=== PATIENT | male | born 1955 | race African-American/Black ===

== ENCOUNTER 2017-08-12 06:43 | Emergency (ER) | payer OTHER ==
--- NOTE | 2017-08-12 08:01 | RAD ---
INDICATION: Right knee pain. TECHNIQUE: 4 views of the right knee were obtained. FINDINGS: The bones are in normal alignment. No joint effusion or fracture is seen. There is mild osteoarthritic change in the medial patellofemoral compartments. IMPRESSION: NO EVIDENCE FOR FRACTURE.
[2017-08-12 09:25] VITALS: BP 131/72
--- NOTE | 2017-08-14 10:51 | ED ---
Paras Wu Angela, scribed for Sandro Castellano MD on 08/12/17 at 0718 . Lower Extremity - HPI Summary HPI Summary: This pt is a 62 y/o male presenting to [facility] c/o right knee pain s/p fall 1.5 weeks ago. Pt reports he fell on his right knee. He states it was swollen. He currently rates his pain 10/10 in severity. Pt notes he is taking hydromorphone without relief, which he states he takes for his cancer. Pt denies any other recent fall or injury to knee. - History of Current Complaint Chief Complaint: EDExtremityLower Stated Complaint: RIGHT LEG PAIN Time Seen by Provider: 08/12/17 07:08 Hx Obtained From: Patient Mechanism Of Injury: Fall From A Standing Position Onset of Pain: Immediate Onset/Duration: Days Severity Currently: Severe Pain Intensity: 10 Pain Scale Used: 0-10 Numeric Timing: Lasting Days Location: Is Discrete @ - right knee Associated Signs And Symptoms: Positive: Swelling, Knee Pain - right Aggravating Factor(s): Nothing Alleviating Factor(s): Nothing - Allergies/Home Medications Allergies/Adverse Reactions: Allergies Allergy/AdvReac Type Severity Reaction Status Date / Time banana Allergy Intermediate Vomiting Verified 07/22/17 15:12 Home Medications: Home Medications Aspirin EC TAB* [Ecotrin EC Low Dose 81 MG*] 81 mg PO DAILY 08/12/17 [History Confirmed 08/12/17] Bicalutamide (NF) [Casodex (NF)] 50 mg PO DAILY 08/12/17 [History Confirmed 02/19] PMH/Surg Hx/FS Hx/Imm Hx Endocrine/Hematology History: Denies: Hx Diabetes, Hx Systemic Lupus Erythematosus Cardiovascular History: Reports: Hx Hypertension - well controlled with medicatons Denies: Hx Congestive Heart Failure, Hx Pacemaker/ICD GI History: Reports: Hx Gall Bladder Disease Denies: Other GI Disorders History: Reports: Other Problems/Disorders - uti Denies: Hx Dialysis, Hx Renal Disease Musculoskeletal History: Reports: Hx Back Problems, Other Musculoskeletal History - bone pain right knee Denies: Hx Rheumatoid Arthritis Sensory History: Reports: Hx Contacts or Glasses - Reading Glasses Denies: Hx Hearing Aid Opthamlomology History: Reports: Hx Contacts or Glasses - Reading Glasses Neurological History: Reports: Other Neuro Impairments/Disorders - bells palsy Psychiatric History: Reports: Hx Anxiety, Hx Depression Denies: Hx Panic Disorder - Cancer History Cancer Type, Location and Year: PROSTATE Hx Chemotherapy: Yes - "DAILY PILLS AND SHOT EVERY 3 MONTHS" - Surgical History Surgery Procedure, Year, and Place: gallbladder removed. prostate removed. hernia repair. Lumbar spine sx Hx Anesthesia Reactions: No Infectious Disease History: No Infectious Disease History: Reports: Hx Hepatitis - Hep C, Hx Tuberculosis - took pills he states Denies: Traveled Outside the [place] in Last 30 Days - Family History Known Family History: Negative: Cardiac Disease, Hypertension, Diabetes - Social History Alcohol Use: Rare Alcohol Amount: Patient has stated x2 that he is not drinking alcohol. Substance Use Type: Reports: None Substance Use Comment - Amount & Last Used: HX ETOH ABUSE Smoking Status (MU): Current Every Day Smoker Type: Cigarettes Amount Used/How Often: 6 cigarettes/day Length of Time of Smoking/Using Tobacco: 40YRS Have You Smoked in the Last Year: Yes Review of Systems Negative: Fever, Chills ENT: Negative Cardiovascular: Negative Respiratory: Negative Gastrointestinal: Negative Musculoskeletal: Other - right knee pain Neurological: Negative All Other Systems Reviewed And Are Negative: Yes Physical Exam - Summary Physical Exam Summary: VITAL SIGNS: Reviewed. GENERAL: Patient is a well-developed and nourished male who is lying comfortable in the stretcher. Patient is not in any acute respiratory distress. HEAD AND FACE: No signs of trauma. No ecchymosis, hematomas or skull depressions. No sinus tenderness. EYES: PERRLA, EOMI x 2, No injected conjunctiva, no nystagmus. EARS: Hearing grossly intact. Ear canals and tympanic membranes are within normal limits. MOUTH: Oropharynx within normal limits. NECK: Supple, trachea is midline, no adenopathy, no JVD, no carotid bruit, no c- spine tenderness, neck with full ROM. CHEST: Symmetric, no tenderness at palpation LUNGS: Clear to auscultation bilaterally. No wheezing or crackles. CVS: Regular rate and rhythm, S1 and S2 present, no murmurs or gallops appreciated. ABDOMEN: Soft, non-tender. No signs of distention. No rebound no guarding, and no masses palpated. Bowel sounds are normal. EXTREMITIES: FROM in all major joints, no edema, no cyanosis or clubbing. RLE: no deformity, no ecchymosis, no swelling, no erythema. Full ROM of right knee. Good pulses. NEURO: Alert and oriented x 3. No acute neurological deficits. Speech is normal and follows commands. SKIN: Dry and warm Triage Information Reviewed: Yes Vital Signs On Initial Exam: Initial Vitals Temp Pulse Resp BP Pulse Ox 98.6 F 75 16 141/81 99 08/12/17 06:43 08/12/17 06:43 08/12/17 06:43 08/12/17 06:43 08/12/17 06:43 Vital Signs Reviewed: Yes Diagnostics - Vital Signs Vital Signs Temp Pulse Resp BP Pulse Ox 08/12/17 06:43 98.6 F 75 16 141/81 99 - Laboratory Lab Statement: Any lab studies that have been ordered have been reviewed, and results considered in the medical decision making process. - Radiology Right knee XR Xray Interpretation: No Acute Changes - IMPRESSION: No evidence for fracture. Dr. Castellano has reviewed this radiology report. Radiology Interpretation Completed By: Radiologist Lower Extremity Course/Dx - Course Assessment/Plan: This pt is a 62 y/o male presenting to [facility] c/o right knee pain s/p fall 1.5 weeks ago. Pt reports he fell on his right knee. He states it was swollen. He currently rates his pain 10/10 in severity. Pt notes he is taking hydromorphone without relief, which he states he takes for his cancer. Pt denies any other recent fall or injury to knee. On exam, pt has full range of motion of right knee with good pulses. Right knee XR shows no fracture or dislocation. Therefore he will be discharged to home with follow up from his PCP. Pt will be given a prescription for Naproxen. He was also given crutches to help him ambulate at home. I discussed all the findings and test results with the patient. All questions were answered to patient satisfaction. There were no further complaints or concerns. He is instructed to return to the ED for any worsening or new symptoms. Pt is hemodynamically stable, alert and oriented x3. - Diagnoses Provider Diagnoses: Right knee pain Discharge - Sign-Out/Discharge Documenting (check all that apply): Discharge - discharge to home - Discharge Plan Condition: Stable Disposition: HOME Prescriptions: Naproxen [Naprosyn] 500 mg PO BID #20 tablet Patient Education Materials: Knee Pain (ED) Referrals: Guanaco Kellogg MD [Primary Care Provider] - 3 Days Additional Instructions: Please follow up with your primary care provider. RETURN TO THE ED FOR ANY NEW OR WORSENING SYMPTOMS. The documentation as recorded by the Paras antoine Angela accurately reflects the service I personally performed and the decisions made by , Sandro Castellano MD.
== END 2017-08-12 09:23 | disposition home or self-care (01) ==
LOC: ED 06:43
DX: M25.561 Pain in right knee (principal); I10 Essential (primary) hypertension; C61 Malignant neoplasm of prostate; W19.XXXA Unspecified fall, initial encounter; Y92.9 Unspecified place or not applicable
CPT/HCPCS: 99282

== ENCOUNTER 2018-01-29 11:30 | Emergency (ER) | payer OTHER ==
--- NOTE | 2018-01-29 12:02 | ED ---
Complex/Multi-Sys Presentation - HPI Summary HPI Summary: A 62 y/o M presents to ED with c/o n/v onset last night. Pt vomited last night and this AM. Associated sx: decreased oral intake. He also missed his recent appts and has run out of his prescriptions. He has not contacted his care providers regarding this issue. PCP is Dr. Kellogg. Dr and he also sees Dr. Alcocer, oncology. PMHx: prostate CA. - History Of Current Complaint Chief Complaint: EDNauseaVomitDiarrh Time Seen by Provider: 01/29/18 11:34 Hx Obtained From: Patient Onset/Duration: Lasting Hours - last night, Still Present Severity Currently: Moderate Severity Initially: Moderate Associated Signs And Symptoms: Positive: Nausea, Decreased Oral Intake - Allergies/Home Medications Allergies/Adverse Reactions: Allergies Allergy/AdvReac Type Severity Reaction Status Date / Time banana Allergy Intermediate Vomiting Verified 11/27/17 14:54 PMH/Surg Hx/FS Hx/Imm Hx Previously Healthy: No Endocrine/Hematology History: Denies: Hx Diabetes, Hx Systemic Lupus Erythematosus Cardiovascular History: Reports: Hx Hypertension - well controlled with medicatons Denies: Hx Congestive Heart Failure, Hx Pacemaker/ICD GI History: Reports: Hx Gall Bladder Disease Denies: Other GI Disorders History: Reports: Other Problems/Disorders - uti Denies: Hx Dialysis, Hx Renal Disease Musculoskeletal History: Reports: Hx Back Problems, Other Musculoskeletal History - bone pain right knee Denies: Hx Rheumatoid Arthritis Sensory History: Reports: Hx Contacts or Glasses - Reading Glasses Denies: Hx Hearing Aid Opthamlomology History: Reports: Hx Contacts or Glasses - Reading Glasses Neurological History: Reports: Other Neuro Impairments/Disorders - bells palsy Psychiatric History: Reports: Hx Anxiety, Hx Depression Denies: Hx Panic Disorder - Cancer History Cancer Type, Location and Year: PROSTATE Hx Chemotherapy: Yes - "DAILY PILLS AND SHOT EVERY 3 MONTHS" - Surgical History Surgery Procedure, Year, and Place: gallbladder removed. prostate removed. hernia repair. Lumbar spine sx Hx Anesthesia Reactions: No Infectious Disease History: No Infectious Disease History: Reports: Hx Hepatitis - Hep C, Hx Tuberculosis - took pills he states Denies: Traveled Outside the [place] in Last 30 Days - Family History Known Family History: Negative: Cardiac Disease, Hypertension, Diabetes - Social History Occupation: Unemployed Lives: With Family Alcohol Use: Weekly Alcohol Amount: 7 drinks per week Substance Use Type: Reports: None Substance Use Comment - Amount & Last Used: HX ETOH ABUSE Smoking Status (MU): Current Every Day Smoker Type: Cigarettes Amount Used/How Often: 1/4 PPD Length of Time of Smoking/Using Tobacco: 40YRS Have You Smoked in the Last Year: Yes Review of Systems Positive: Other - decreased oral intake Positive: Vomiting, Nausea All Other Systems Reviewed And Are Negative: Yes Physical Exam - Summary Physical Exam Summary: Appearance: The patient is well-nourished in no acute distress and in no acute pain. Skin: The skin is warm and dry and skin color reflects adequate perfusion. HEENT: The head is normocephalic and atraumatic. The pupils are equal and reactive. The conjunctivae are clear and without drainage. Nares are patent and without drainage. Mouth reveals moist mucous membranes and the throat is without erythema and exudate. The external ears are intact. The ear canals are patent and without drainage. The tympanic membranes are intact. Neck: the neck is supple with full range of motion and non-tender. There are no carotid bruits. There is no neck vein distension. Respiratory: Chest is non-tender. Lungs are clear to auscultation and breath sounds are symmetrical and equal. Cardiovascular: Heart is regular rate and rhythm. There is no murmur or rub auscultated. There is no peripheral edema and pulses are symmetrical and equal. Abdomen: The abdomen is soft and non-tender. There are normal bowel sounds heard in all four quadrants and there is no organomegaly palpated. Musculoskeletal: There is no back tenderness noted. Extremities are non-tender with full range of motion. There is good capillary refill. There is no peripheral edema or calf tenderness elicited. Neurological: Patient is alert and oriented to person, place and time. The patient has symmetrical motor strength in all four extremities. Cranial nerves are grossly intact. Deep tendon reflexes are symmetrical and equal in all four extremities. Psychiatric: The patient has an appropriate affect and does not exhibit any anxiety or depression. Triage Information Reviewed: Yes Vital Signs On Initial Exam: Initial Vitals Temp Pulse Resp BP Pulse Ox 97.2 F 73 18 127/75 97 01/29/18 11:37 01/29/18 11:37 01/29/18 11:37 01/29/18 11:37 01/29/18 11:37 Vital Signs Reviewed: Yes Diagnostics - Vital Signs Vital Signs Temp Pulse Resp BP Pulse Ox 01/29/18 11:37 97.2 F 73 18 127/75 97 - Laboratory Result Diagrams: 01/29/18 13:52 01/29/18 13:52 Lab Statement: Any lab studies that have been ordered have been reviewed, and results considered in the medical decision making process. Re-Evaluation - Re-Evaluation 1 Re-Evaluation Time: 15:44 Complex Multi-Symp Course/Dx Course Of Treatment: Mr. Van presented with a confusing story. Ostensibly he is here because he is nauseated and vomited last night. He is also concerned that he has run out of his mediciness. It is unclear exactly why this is so and he can't give a good reason. According to the [facility], he is due to run out of his hydromorphone tomorrow and his fentanyl on Friday. He missed an appointment last week so he says that the pain clinic will not refill them. I spoke with the Shilpa Katz of the pain clinic and she says that they are glad to call in refills now if he schedules another appointment. He says he can't do that because his phone isn't working. I recommended that he borrow a phone or call from the ED. His COWS is 0 at this time and he is wearing two fentanyl patches. 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 - Diagnoses Provider Diagnoses: Nausea Discharge - Sign-Out/Discharge Documenting (check all that apply): Patient Departure - DC - Discharge Plan Condition: Stable Disposition: HOME Patient Education Materials: Acute Nausea and Vomiting (ED) Referrals: Guanaco Kellogg MD [Primary Care Provider] - 2 Days Additional Instructions: Please return to the ED if you experience new or worsening symptoms. Follow up with your primary care provider in 2-3 days. CONTACT YOUR PHYSICIAN'S OFFICE FOR REFILLS ON YOUR PRESCRIPTIONS. - Billing Disposition and Condition Condition: STABLE Disposition: Home - Attestation Statements Document Initiated by Scribe: Yes Documenting Scribe: [facility] Provider For Whom Scribe is Documenting (Include Credential): Dr. Luke Weston MD Scribe Attestation: Jairo Wu, scribed for Dr. Luke Weston MD on 01/30/18 at 0958. Scribe Documentation Reviewed: Yes Provider Attestation: The documentation as recorded by the filomenaibe, Jairo Marvin accurately reflects the service I personally performed and the decisions made by me, Dr. Luke Weston MD
[2018-01-29] MEDS ORDERED: Ondansetron ODT TAB* 4 MG PO ONE (12:31)
[2018-01-29 14:14] LABS: Hematocrit 31 % (42-52); Hemoglobin 10.2 g/dl (14.0-18.0); Mean Corpuscular HGB Conc 33 g/dl (31-36); Mean Corpuscular Hemoglobin 30 pg (27-31); Mean Corpuscular Volume 91 fL (80-94); Red Cell Distribution Width 28 % (10.5-15); White Blood Count 4.1 10^3/ul (3.5-10.8)
[2018-01-29 14:17] LABS: EGFR Non-African American 103.3 (>60)
[2018-01-29 15:01] LABS: ABS Basophils 0 10^3/ul (0-0.2); ABS Eosinophils 0 10^3/ul (0-0.6); ABS Lymphocytes 0.9 10^3/ul (1.0-4.8); ABS Monocytes 0.4 10^3/ul (0-0.8); ABS Neutrophils 2.8 10^3/ul (1.5-7.7); ABS Nucleated RBC 0.1 10^3/ul; Eosinophil % 0.1 % (0-6); Lymphocyte % 21.4 % (25-47); Mean Platelet Volume 8.9 um3 (7.4-10.4); Nucleated Red Blood Cells % 2.5; Platelet Count 90 10^3/ul (150-450)
[2018-01-29] MEDS ORDERED: NS 0.9% 1000 ML* 1,000 ML IV ONE (15:45)
[2018-01-29] MEDS ORDERED: Ondansetron INJ* 2 MG/ML VIAL IV ONE (15:45)
[2018-01-29] MEDS ORDERED: HYDROmorphone TAB* 4 MG PO ONE (17:49)
[2018-01-29 18:58] VITALS: BP 129/69
== END 2018-01-29 18:59 | disposition home or self-care (01) ==
LOC: ED 11:30
DX: R11.2 Nausea with vomiting, unspecified (principal); I10 Essential (primary) hypertension; F17.210 Nicotine dependence, cigarettes, uncomplicated; Z85.46 Personal history of malignant neoplasm of prostate; Z79.899 Other long term (current) drug therapy
CPT/HCPCS: 36415; 80053; 85025; 85060; 86140; 96361; 96374; 99283; A9270-GY; J2405

== ENCOUNTER 2018-03-27 20:27 | Inpatient (IN) | payer OTHER ==
[2018-03-27] MEDS ORDERED: HYDROmorphone INJ* 2 MG/ML CARPUJECT SYRINGE IV SLOW PU ONE (20:53)
[2018-03-27] MEDS ORDERED: Ondansetron INJ* 2 MG/ML VIAL IV ONE (20:53)
[2018-03-27] MEDS ORDERED: Thiamine IV* 100 MG/ML 2 ML VIAL IV ONE (20:53)
--- NOTE | 2018-03-27 21:44 | ED ---
Complex/Multi-Sys Presentation - HPI Summary HPI Summary: Pt is a 62 y/o male brought in by EMS who presents to the ED c/o abdominal and coccyx pain. He states 5 days ago he fell backwards and hit his tailbone. Since then, he c/o bloody urine, abdominal pain, low back pain, and N/V. Pt also states that he had tremors, but doesnt have them now. He denies any CP or SOB. Pt currently has prostate CA. Pt hasnt had any alcohol in 3 days because he hasnt been able to move due to the pain but is a chronic alcoholic. He hasnt had a BM in 5 days. Pt has taken hydromorphone for the pain, but it has not helped. Pt states that his abdomen is always distended, but his eyes are not usually jaundiced. - History Of Current Complaint Chief Complaint: EDGeneral Time Seen by Provider: 03/27/18 20:35 Hx Obtained From: Patient, EMS Onset/Duration: Gradual Onset, Lasting Days - 5, Still Present Timing: Constant Location: Pain At: - Abdomen, back Aggravating Factor(s): Falling backwards Associated Signs And Symptoms: Positive: Nausea, Vomiting, Abdominal Pain, Back Pain. Negative: SOB, Chest Pain - Allergies/Home Medications Allergies/Adverse Reactions: Allergies Allergy/AdvReac Type Severity Reaction Status Date / Time banana Allergy Intermediate Vomiting Verified 02/13/18 14:24 PMH/Surg Hx/FS Hx/Imm Hx Endocrine/Hematology History: Denies: Hx Diabetes, Hx Systemic Lupus Erythematosus Cardiovascular History: Reports: Hx Hypertension - well controlled with medicatons Denies: Hx Congestive Heart Failure, Hx Pacemaker/ICD GI History: Reports: Hx Gall Bladder Disease Denies: Other GI Disorders History: Reports: Other Problems/Disorders - uti Denies: Hx Dialysis, Hx Renal Disease Musculoskeletal History: Reports: Hx Back Problems, Other Musculoskeletal History - bone pain right knee Denies: Hx Rheumatoid Arthritis Sensory History: Reports: Hx Contacts or Glasses - Reading Glasses Denies: Hx Hearing Aid Opthamlomology History: Reports: Hx Contacts or Glasses - Reading Glasses Neurological History: Reports: Other Neuro Impairments/Disorders - bells palsy Psychiatric History: Reports: Hx Anxiety, Hx Depression Denies: Hx Panic Disorder - Cancer History Cancer Type, Location and Year: PROSTATE Hx Chemotherapy: Yes - "DAILY PILLS AND SHOT EVERY 3 MONTHS" - Surgical History Surgery Procedure, Year, and Place: gallbladder removed. prostate removed. hernia repair. Lumbar spine sx Hx Anesthesia Reactions: No Infectious Disease History: No Infectious Disease History: Reports: Hx Hepatitis - Hep C, Hx Tuberculosis - took pills he states Denies: Traveled Outside the [place] in Last 30 Days - Family History Known Family History: Negative: Cardiac Disease, Hypertension, Diabetes - Social History Alcohol Use: Weekly Alcohol Amount: 7 drinks per week Hx Substance Use: No Substance Use Type: Reports: None Substance Use Comment - Amount & Last Used: HX ETOH ABUSE Hx Tobacco Use: Yes Smoking Status (MU): Current Every Day Smoker Type: Cigarettes Amount Used/How Often: 5-6 cigarettes/day Length of Time of Smoking/Using Tobacco: 40YRS Have You Smoked in the Last Year: Yes Review of Systems Negative: Chest Pain Negative: Shortness Of Breath Positive: Abdominal Pain, Vomiting, Nausea, Other - distention Positive: hematuria Positive: Myalgia - low back pain Neurological: Other - Tremors All Other Systems Reviewed And Are Negative: Yes Physical Exam - Summary Physical Exam Summary: Appearance: chronically-ill appearing, no pain distress Skin: warm, dry, chronic dermatitis on bilateral LE Head/face: allison facies Eyes: EOMI, SHIRA, icteric, no nystagmus ENT: mucous membranes dry and erythematous Neck: supple, non-tender Respiratory: moderate expiratory wheezes, breath sounds present Cardiovascular: RRR, pulses symmetrical Abdomen: distended, mild diffuse tenderness Bowel Sounds: present Musculoskeletal: normal, strength/ROM intact Neuro: sensory motor intact, A&Ox3, speech mildly slurred Triage Information Reviewed: Yes Vital Signs On Initial Exam: Initial Vitals Pulse Pulse Ox 75 95 03/27/18 20:32 03/27/18 20:32 Vital Signs Reviewed: Yes Procedures - Procedure Summary Procedure Summary: Paracentesis: Patient was consented and a timeout was performed. 2 cc 1% lidocaine given for anesthesia, 2 1 L containers of clear straw-colored fluid removed from abdomen through a needle was placed in the LLQ, specimens sent to lab. He tolerated this well without complication. - Central Line Right Jugular Central Line Lumen: triple Central Line Procedure: betadine prep, sterile drapes applied, sterile dressing applied Central Line Position: internal jugular (R) Anesthesia: Lidocaine - 3 cc 1% cc's of anesthesia: 3 Complications: none Central Line Post Position: sutured - 3, good blood return, position confirmed w / CXR Diagnostics - Vital Signs Vital Signs Temp Pulse Resp BP Pulse Ox 03/27/18 21:00 75 97 03/27/18 20:39 96.9 F 81 22 96/59 95 03/27/18 20:32 75 95 - Laboratory Result Diagrams: 03/27/18 22:13 03/27/18 22:13 Lab Statement: Any lab studies that have been ordered have been reviewed, and results considered in the medical decision making process. - Radiology Sacrum and Coccyx XR Radiology Interpretation Completed By: ED Physician - No definite fracture. Pending official radiology report CXR Radiology Interpretation Completed By: ED Physician - Right lower lobe atelectasis, but CT showed clear of infiltrate. Pending official radiology report. CXR 2 Radiology Interpretation Completed By: ED Physician - Central line placement confirmed. Pending official radiology report. - CT CT A/P CT Interpretation Completed By: Radiologist - 1. Infectious near pancolitis versus hepatic colonopathy. 2. Hepatic cirrhosis and associated portal hypertension. 3. Bosniak type I renal cysts. No followup indicated. ED physician reviewed radiology report. - EKG 21:25 Cardiac Rate: NL - 74 bpm EKG Rhythm: Sinus Rhythm ST Segment: Non-Specific Summary of EKG Findings: Nl axis, low voltage, long QT interval Re-Evaluation - Re-Evaluation First Eval Change: Improved Complex Multi-Symp Course/Dx Course Of Treatment: Chronic alcoholic presents with signs of cirrhosis, ascites and likely SBP. He has no peripheral access due to long-term IV drug abuse. I had to place a central line in his right IJ. I also had previously drawn laboratories from his left IJ. Following the central line placement a paracentesis was performed with ultrasound guidance. 2 L of straw-colored fluid was removed from the abdomen with some improvement and abdominal pain. IV Zosyn was given for possible SBP. He has evidence on laboratories of liver failure. Discussed the case with the hospitalist who will admit. - Diagnoses Differential Diagnoses/HQI/PQRI: Metabolic Abnormality, Sepsis, Other - SBP, cirrhosis, gallbladder disease, hepatitis B/C Provider Diagnoses: Alcoholic cirrhosis, Abdominal pain, SBP (spontaneous bacterial peritonitis) - Physician Notifications Discussed Care Of Patient With: Osiris Valle Time Discussed With Above Provider: 23:15 Instructed by Provider To: Admit As Inpatient - Critical Care Time Critical Care Time: 30-74 min - CCT is EXCLUSIVE of separately billable procedures. Discharge - Sign-Out/Discharge Documenting (check all that apply): Patient Departure - Admit - Discharge Plan Condition: Fair Disposition: ADMITTED TO [facility] - Billing Disposition and Condition Condition: FAIR Disposition: Admitted to [facility] - Attestation Statements Document Initiated by Geovanniibe: Yes Documenting Scribe: Anette Hutchinson Provider For Whom Kiley is Documenting (Include Credential): Eliceo Xie MD Scribe Attestation: Anette Wu, scribed for Eliceo Xie MD on 03/28/18 at 0141. Scribe Documentation Reviewed: Yes Provider Attestation: The documentation as recorded by the scribeAnette accurately reflects the service I personally performed and the decisions made by me, Eliceo Xie MD
[2018-03-27 22:35] LABS: INR 2.5 (0.77-1.02)
[2018-03-27] MEDS ORDERED: HYDROmorphone INJ1* 1 MG/ML SYRINGE ONE (22:38)
[2018-03-27 22:41] LABS: EGFR Non-African American 59.8 (>60)
[2018-03-27] MEDS ORDERED: Thiamine IV 100 MG in NS 0.9% 50 ML Q24H IV ONE (22:45)
[2018-03-27] MEDS ORDERED: Piperacillin/Tazobac ADVAN(*) 3.375 GM in NS 0.9% 100 ML* 100 ML IVPB ONE (22:47)
[2018-03-27] MEDS ORDERED: Lidocaine 1% INJ* 10 MG/ML 30 ML SDV INJ ONE (22:57)
[2018-03-27 23:11] LABS: ABS Basophils 0 10^3/ul (0-0.2); ABS Eosinophils 0 10^3/ul (0-0.6); ABS Lymphocytes 0.6 10^3/ul (1.0-4.8); ABS Monocytes 0.8 10^3/ul (0-0.8); ABS Nucleated RBC 0.4 10^3/ul; Eosinophil % 0.1 % (0-6); Hematocrit 33 % (42-52); Hemoglobin 10.6 g/dl (14.0-18.0); Lymphocyte % 8.6 % (25-47); Mean Corpuscular HGB Conc 32 g/dl (31-36); Mean Corpuscular Hemoglobin 36 pg (27-31); Mean Corpuscular Volume 111 fL (80-94); Mean Platelet Volume 9.1 fL (7.4-10.4); Platelet Count 103 10^3/ul (150-450); Red Blood Count 2.96 10^6/ul (4.00-5.40); Red Cell Distribution Width 29 % (10.5-15); White Blood Count 7.5 10^3/ul (3.5-10.8)
[2018-03-28] MEDS ORDERED: Ondansetron INJ* 2 MG/ML VIAL IV PRN (00:01)
[2018-03-28] MEDS ORDERED: Ondansetron TAB* 4 MG PO PRN (00:09)
[2018-03-28] MEDS ORDERED: RIFAMPIN 150 MG PO ONE (00:09)
[2018-03-28] MEDS ORDERED: LEUPROLIDE IM SCH (00:15)
--- NOTE | 2018-03-28 00:15 | ADMNOTE ---
Subjective Date of Service: 03/28/18 Interval History: code status full this is admission h/p hpi this is a 62 yr old aa male with hx of chronic etoh dep presnted to er with increased abd girth/ abd pain for about 4-5 days prior to admission. pt stated he fell about 5 days ago and landed on his back but was not able to come in for eval ---> pt is homeless. he has chronic etoh dep. says he just had a hx of binge drinking for the past 4 days prior to admisison ---> on avg will consume one quarter of voka daily. last drink was at least 24-48 hrs ago. pt had 2 liter tapped out from his ascites. initial wbc wnl but got rocephin from er for possible sbp. his abd pain described as sharp constant generalized pain decreased with pain med. 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 chronic unsteady gait walks with a walker pshx denied social hx no cig binge drinking on avg will consume one quart of vodka daily he is homeless walks with a walker fhx etoh in family Review of Systems - Measurements Intake and Output: Intake and Output Last 24 Hours 03/25/18 03/26/18 03/27/18 03/28/18 06:59 06:59 06:59 06:59 Weight 210 lb - Review of Systems General Comments: pertinent as per hpi Objective Active Medications: Aspirin (Aspirin Ec Tab*) 81 mg PO DAILY [facility] Atenolol (Tenormin Tab*) 50 mg PO QAM [facility] Bicalutamide (Casodex (Nf)) 50 mg PO DAILY [facility]; Protocol Docusate Sodium (Colace Cap*) 100 mg PO BID [facility] Fentanyl (Duragesic Patch 100 Mcg/Hr *) mcg TRANSDERM Q72H [facility] Gabapentin (Neurontin Cap(*)) 100 mg PO QID [facility] Hydromorphone HCl (Dilaudid Tab*) 4 mg PO Q4H PRN PRN Reason: PAIN Piperacillin Sod/Tazobactam (Sod 3.375 gm/ Sodium Chloride) 100 mls @ 25 mls/ hr IVPB Q8H AD[facility] Mupirocin (Bactroban 2 % Oint*) 1 applic TOPICAL BID AD[facility] Non-Formulary Medication (Dextran 70/Hypromellose [Natural Balance Tears Eye Drop]) 1 nicolás OP QID ADOLFO Non-Formulary Medication (Leuprolide 11.25 Mg Kit) 22.5 mg IM ONCE [facility] Non-Formulary Medication (Xtandi) 40 mg PO QID [facility] Ondansetron HCl (Zofran Inj*) 4 mg IV Q6H PRN PRN Reason: NAUSEA/VOMITING Ondansetron HCl (Zofran Tab*) 4 mg PO Q6H PRN PRN Reason: NAUSEA/VOMITING Polyethylene Glycol/Electrolytes (Miralax*) 17 gm PO DAILY ADOL[facility] Sertraline HCl (Zoloft*) 50 mg PO DAILY ADOLFO Vital Signs - 8 hr 03/27/18 03/27/18 03/27/18 20:32 20:39 21:00 Temperature 96.9 F Pulse Rate 75 81 75 Respiratory 22 Rate Blood Pressure 96/59 (mmHg) O2 Sat by Pulse 95 95 97 Oximetry 03/27/18 22:50 Temperature Pulse Rate Respiratory 22 Rate Blood Pressure (mmHg) O2 Sat by Pulse Oximetry Oxygen Devices in Use Now: None Appearance: cachetic looking Eyes: PERRLA Ears/Nose/Mouth/Throat: NL Teeth, Lips, Gums, Clear Oropharnyx, Mucous Membranes Moist Neck: NL Appearance and Movements; NL JVP, Trachea Midline, No Thyroid Enlargement, Masses Respiratory: Symmetrical Chest Expansion and Respiratory Effort, - - decreased b /s at base Cardiovascular: NL Sounds; No Murmurs; No JVD, RRR Abdominal: - - + ascites Extremities: No Edema - trace pedal edema able to raise ue and le against gravity Skin: No Rash or Ulcers Neurological: Alert and Oriented x 3, - - cranial n 2-12 grossly intact motor b/ l ue and le 5/5 sensory upper 2/2 le 1/2 plantar reflex downwards Result Diagrams: 03/28/18 05:00 03/28/18 05:00 Assess/Plan/Problems-Billing Assessment: this is a 62 yr old aa male with hx of chronic etoh dep presented with abd pain/ girth. pt got tapped in the er and had two liter out. initial wbc wnl but got rocphin for sbp prophylaxis - Patient Problems (1) Cirrhosis of liver not due to alcohol Current Visit: Yes Status: Acute Comment: supportive care his esld but still drinks (2) Chronic liver failure Current Visit: Yes Status: Acute Code(s): K72.10 - CHRONIC HEPATIC FAILURE WITHOUT COMA SNOMED Code(s): 774641835 Comment: supportive care since he still drinks (3) Unsteady gait Current Visit: Yes Status: Acute Code(s): R26.81 - UNSTEADINESS ON FEET SNOMED Code(s): 64188604 Comment: ck b12 will have pt eval in am (4) Prostate cancer Current Visit: Yes Status: Acute Code(s): C61 - MALIGNANT NEOPLASM OF PROSTATE SNOMED Code(s): 639801519 Comment: continue home prostate cancer regimen (5) EtOH dependence Current Visit: Yes Status: Acute Code(s): F10.20 - ALCOHOL DEPENDENCE, UNCOMPLICATED SNOMED Code(s): 37568223 Comment: [facility] protocol (6) Abnormal LFTs Current Visit: Yes Status: Acute Code(s): R94.5 - ABNORMAL RESULTS OF LIVER FUNCTION STUDIES SNOMED Code(s): 720626525 Comment: this is related to his esld ck ammonia in am he is aao times three ck lft treand (7) Elevated INR Current Visit: Yes Status: Acute Code(s): R79.1 - ABNORMAL COAGULATION PROFILE SNOMED Code(s): 979617610 Comment: auto anticoag himself due esld h/h has been stable rafaximin ordered
[2018-03-28] MEDS: fentaNYL PATCHs 100 MCG/HR TRANSDERM SCH (01:21)
[2018-03-28] MEDS: HYDROmorphone TAB* 4 MG PO PRN ×2 (01:36→12:31)
[2018-03-28] MEDS: Piperacillin/Tazobac ADVAN(*) 3.375 GM in NS 0.9% 100 ML* 100 ML IVPB SCH ×3 (03:22→19:53)
[2018-03-28] MEDS ORDERED: Dextrose 50% Syringe 50 ML* 25 GM/50 ML SYRINGE IV PUSH PRN (04:59)
[2018-03-28 05:25] LABS: Hematocrit 32 % (42-52); Hemoglobin 10.4 g/dl (14.0-18.0); Mean Corpuscular HGB Conc 33 g/dl (31-36); Mean Corpuscular Hemoglobin 36 pg (27-31); Mean Corpuscular Volume 111 fL (80-94); Mean Platelet Volume 9.3 fL (7.4-10.4); Platelet Count 93 10^3/ul (150-450); Red Blood Count 2.86 10^6/ul (4.00-5.40); Red Cell Distribution Width 29 % (10.5-15); White Blood Count 8.7 10^3/ul (3.5-10.8)
[2018-03-28 05:38] LABS: Urine Appearance Cloudy; Urine Blood Negative (Negative); Urine Color Amber; Urine Ketones Negative (Negative); Urine Protein 1+(30 mg/dL) (Negative); Urine Red Blood Cell 1+(3-5/hpf) (Absent); Urine Specific Gravity 1.026 (1.010-1.030); Urine Urobilinogen Positive (Negative); Urine White Blood Cell 1+(6-10/hpf) (Absent)
[2018-03-28 05:45] LABS: EGFR Non-African American 51.4 (>60)
[2018-03-28 05:53] LABS: ABS Basophils 0.1 10^3/ul (0-0.2); ABS Eosinophils 0 10^3/ul (0-0.6); ABS Lymphocytes 0.6 10^3/ul (1.0-4.8); ABS Monocytes 0.7 10^3/ul (0-0.8); ABS Neutrophils 7.3 10^3/ul (1.5-7.7); ABS Nucleated RBC 0.3 10^3/ul
[2018-03-28 05:56] LABS: Monocytes % 8 % (0-7)
[2018-03-28 05:58] LABS: ABS Neutrophils 7.5 10^3/ul (1.5-7.7)
[2018-03-28] MEDS: Insulin LISPRO* 1 UNITS UNIT SUBCUT SCH ×3 (07:34→16:39)
[2018-03-28] MEDS ORDERED: DEXTRAN 70 OP SCH (09:00)
[2018-03-28] MEDS ORDERED: Atenolol TAB* 50 MG PO SCH ×2 (09:00→13:29)
[2018-03-28] MEDS ORDERED: HYPROMELLOSE OP SCH (09:00)
[2018-03-28] MEDS: Gabapentin CAP(*) 100 MG PO SCH ×4 (09:11→21:17)
[2018-03-28] MEDS: Mupirocin 2% OINT* TUBE TOPICAL SCH ×2 (09:12→21:19)
[2018-03-28] MEDS: Docusate CAP* 100 MG PO SCH ×2 (09:12→20:53)
[2018-03-28] MEDS: Sertraline* 50 MG TAB PO SCH (09:12)
[2018-03-28] MEDS: BICALUTAMIDE 50 MG PO SCH (09:12)
[2018-03-28] MEDS: Aspirin EC TAB* 81 MG TAB.EC PO SCH (09:12)
[2018-03-28] MEDS: Polyethylene Glycol 3350* 17 GM PACKET PO SCH (09:12)
[2018-03-28] MEDS: ENZALUTAMIDE 40 MG PO SCH ×4 (09:13→21:26)
[2018-03-28] MEDS: RiFAXimin* 550 MG TAB PO SCH ×2 (10:16→21:18)
[2018-03-28] MEDS: Polyethyl Glycol/Propylene Gly OPHTH.SOLN BOTH EYES SCH ×4 (10:18→21:18)
[2018-03-28] MEDS: fentaNYL Patch Check Q Shift 1 NOTE FOLLOW UP SCH ×2 (13:13→19:31)
--- NOTE | 2018-03-28 13:26 | PN ---
Subjective Date of Service: 03/28/18 Interval History: HOSPITALIST PROGRESS NOTE Patient seen and examined at bedside. Care reviewed and d/w Angela Van RN. He's lethargic and confused. Arousable to voice, but asking repeatedly "did I ring my ortez" and goes back to sleep. Family History: Unchanged from Admission Social History: Unchanged from Admission Past Medical History: Unchanged from Admission Objective Active Medications: Aspirin (Aspirin Ec Tab*) 81 mg PO DAILY [facility] Last Admin: 03/28/18 09:12 Dose: 81 mg Atenolol (Tenormin Tab*) 50 mg PO QAM [facility] Last Admin: 03/28/18 09:12 Dose: 50 mg Bicalutamide (Casodex (Nf)) 50 mg PO DAILY [facility]; Protocol Last Admin: 03/28/18 09:12 Dose: 50 mg Dextrose (D50w Syringe 50 Ml*) 12.5 gm IV PUSH .FOR FS < 60 - SS PRN PRN Reason: FS < 60 Docusate Sodium (Colace Cap*) 100 mg PO BID [facility] Last Admin: 03/28/18 09:12 Dose: 100 mg Fentanyl (Duragesic Patch 100 Mcg/Hr *) 200 mcg TRANSDERM Q72H [facility] Last Admin: 03/28/18 01:21 Dose: 200 mcg Gabapentin (Neurontin Cap(*)) 100 mg PO QID [facility] Last Admin: 03/28/18 12:32 Dose: 100 mg Hydromorphone HCl (Dilaudid Tab*) 4 mg PO Q4H PRN PRN Reason: PAIN Last Admin: 03/28/18 12:31 Dose: 4 mg Piperacillin Sod/Tazobactam (Sod 3.375 gm/ Sodium Chloride) 100 mls @ 25 mls/ hr IVPB Q8H [facility] Last Admin: 03/28/18 12:42 Dose: 25 mls/hr Insulin Human Lispro (Humalog*) 0 units SUBCUT ACHS [facility]; Protocol Last Admin: 03/28/18 12:45 Dose: Not Given Lactulose (Lactulose*) 30 ml PO TID [facility] Last Admin: 03/28/18 09:12 Dose: 30 ml Mupirocin (Bactroban 2 % Oint*) 1 applic TOPICAL BID [facility] Last Admin: 03/28/18 09:12 Dose: 1 applic Nft: Xtandi 40 Mg 40 mg PO QID [facility] Last Admin: 03/28/18 12:29 Dose: Not Given Ondansetron HCl (Zofran Inj*) 4 mg IV Q6H PRN PRN Reason: NAUSEA/VOMITING Ondansetron HCl (Zofran Tab*) 4 mg PO Q6H PRN PRN Reason: NAUSEA/VOMITING Pharmacy Profile Note (Fentanyl Patch Check Q Shift) 1 note FOLLOW UP 0700, 1900 [facility] Last Admin: 03/28/18 13:13 Dose: 1 note Polyethyl Glycol/Propylene Glycol (Lubricant Eye Drops) 1 drop BOTH EYES QID [facility] Last Admin: 03/28/18 12:33 Dose: 1 drop Polyethylene Glycol/Electrolytes (Miralax*) 17 gm PO DAILY [facility] Last Admin: 03/28/18 09:12 Dose: 17 gm Rifaximin (Xifaxan*) 550 mg PO BID [facility] Last Admin: 03/28/18 10:16 Dose: 550 mg Sertraline HCl (Zoloft*) 50 mg PO DAILY [facility] Last Admin: 03/28/18 09:12 Dose: 50 mg Vital Signs - 8 hr 03/28/18 03/28/18 03/28/18 07:00 07:25 09:11 Temperature 97.5 F Pulse Rate 79 Respiratory 16 16 18 Rate Blood Pressure 106/59 (mmHg) O2 Sat by Pulse 93 Oximetry 03/28/18 03/28/18 03/28/18 10:58 12:05 12:31 Temperature 97.4 F Pulse Rate 69 Respiratory 24 18 16 Rate Blood Pressure 107/66 (mmHg) O2 Sat by Pulse 96 Oximetry 03/28/18 12:32 Temperature Pulse Rate Respiratory 16 Rate Blood Pressure (mmHg) O2 Sat by Pulse Oximetry Oxygen Devices in Use Now: None Appearance: Elderly gentleman lying in bed in [facility]. Eyes: - - Scleral icterus is present Ears/Nose/Mouth/Throat: Mucous Membranes Moist Neck: Trachea Midline Respiratory: Symmetrical Chest Expansion and Respiratory Effort, Clear to Auscultation Cardiovascular: RRR - Normal S1 and S2 Abdominal: - - Ascites is present, not tender, BS+ Neurological: - - Lethargic, arousable to voice, confused Result Diagrams: 03/28/18 05:00 03/28/18 05:00 Assess/Plan/Problems-Billing Assessment: Mr Van is a 62yo M with PMH of ETOH abuse, hep C, prior drug use, metastatic (bone) prostate CA, who presented to ED with c/o abdominal pain, found to have ascites, hepatic encephalopathy. - Patient Problems (1) Liver cirrhosis, alcoholic Comment: - With component of ETOH hepatitis. Patient has h/o hepatitis C also. - Paracentesis was negative for SBP. - S/p paracentesis in ED - continue Atenolol, add low dose Furosemide and Aldactone. - GI consult requested. (2) Hepatic encephalopathy Comment: - Continue Lactulose and Rifaximine. - Monitor Ammonia level. (3) Colitis Comment: - CT showed diffuse submucosal edema of the colon suggestive of pancolitis. Abdome not tender on PE. Diarrhea started after Lactulose given. I have low suspicion for C. diff. - Will continue Zosyn for now. (4) EtOH dependence Comment: - Last drink was 4 days ago. - [facility] protocol. (5) Prostate cancer Comment: - With bone mets. - Continue pain management. - Receives Lupron [id number] and Xtandi. (6) DVT prophylaxis Comment: - Higher risk for VT due to malignancy, no signs of bleeding - SQ heparin. (7) Full code status Status and Disposition: Inpatient.
[2018-03-28] MEDS ORDERED: LORazepam TAB(*) 1 MG PO SCH (14:00)
[2018-03-28] MEDS: Multivitamins/Minerals TAB PO SCH (14:29)
[2018-03-28] MEDS: Folic Acid TAB* 1 MG PO SCH (14:30)
[2018-03-28] MEDS: Thiamine TAB* 100 MG TAB PO SCH (14:30)
[2018-03-28] MEDS: Heparin VIAL(*) 5000 UNITS/ML VIAL (FIVE THOUSAND) SUBCUT SCH ×2 (14:33→21:18)
[2018-03-28] MEDS ORDERED: Spironolactone TAB* 25 MG PO SCH (16:00)
--- NOTE | 2018-03-28 17:31 | CONS ---
CC: Dr. Kellogg * CONSULTATION REPORT: DATE OF CONSULT: 03/28/18 REQUESTING PHYSICIAN: Dr. Watts. INDICATION: Cirrhosis. NARRATIVE: Mr. Van is a 62-year-old alcoholic, who presented to the emergency room with increased abdominal girth. The patient was found to have large amount of ascites, underwent a large volume paracentesis. Cell count did not reveal any SBP. He also presented with worsening confusion. When I saw him today, he was sleeping, he is fairly easy to arouse. When awoken, he was confused to the time and place. He does have recent alcohol abuse and use. He denies any dark stools. He denies any abdominal pain currently. The patient fell back to sleep very easily. PAST MEDICAL HISTORY: Significant for alcoholism, metastatic prostate cancer, drug abuse. PAST SURGICAL HISTORY: None. FAMILY HISTORY: Significant for alcoholism. SOCIAL HISTORY: The patient is homeless. Very recent alcohol abuse. REVIEW OF SYSTEMS: Unobtainable from the patient at this time due to his confused status. PHYSICAL EXAM: Temperature is 97.7, blood pressure is 85/47, pulse is 93, respiratory rate of 20. General: Chronically ill-appearing male, in no apparent distress, alert, oriented, pleasant, fluent. HEENT: Mucous membranes are moist without lesions, ulcers, or exudate. Dentition is poor. Heart: Regular rate and rhythm, tachycardic. Lungs: Clear to auscultation. Abdomen: Distended. Positive bowel sounds. Soft, nontender. Skin is warm and dry. Neuro: Positive asterixis. DIAGNOSTIC STUDIES/LAB DATA: Of note, sodium is 134, BUN is 33, creatinine is 1.39. Total bilirubin of 13.10, AST is 191, ALT is 71, alk phos is 136. Ammonia is 114. INR is 2.5. Hemoglobin of 10.4, white count of 8.7, platelet count of 93. His ascitic white blood cell count was 83. He did have an abdomen and pelvis CT, which reveals moderate ascites, pancolitis , cirrhosis, renal cyst. ASSESSMENT AND PLAN: This is a 62-year-old gentleman with cirrhosis with resulting ascites and hepatic encephalopathy. As far as his ascites goes, he did have a large volume paracentesis. He is on a gentle diuresis. We will need to watch his kidney function fairly closely. Regarding his encephalopathy , he is on lactulose and Xifaxan. He will need an EGD at some point to evaluate for esophageal varices. Social situation is probably his biggest hindrance to improvement, namely his homelessness. He also needs to avoid all alcohol. We will continue to follow. [id number]/[facility] #: [id number] KAROL
--- NOTE | 2018-03-28 17:46 | PN ---
Hospitalist Progress Note Date of Service: 03/28/18 HOSPITALIST ADDENDUM Patient re-evaluated at bedside. Offers no new complaints. Lethargic but arousable to voice, denies abdominal pain. Abdome: distended, +ascites, NG, NR, BS+ Laboratory Tests 03/28/18 03/28/18 03/28/18 17:15 17:15 17:15 Sodium 134 L Potassium 4.2 Chloride 101 Carbon Dioxide 23 Anion Gap 10 BUN 41 H Creatinine 1.94 H Lactic Acid 3.6 H* Total Bilirubin 14.30 H* AST 283 H ALT 101 H Alkaline Phosphatase 120 H Ammonia 109 H Ammonia and LA are trending down, but creatinine increased. Will give gentle IV hydration and continue to monitor I/Os and labs.
[2018-03-28] MEDS ORDERED: NS 0.9% 1000 ML* 1,000 ML IV SCH ×2 (18:00→23:30)
[2018-03-28] MEDS: Albumin Human 25%* 25 GM/100 ML BTL IV SCH ×2 (19:32→21:03)
[2018-03-28] MEDS ORDERED: NS 0.9% 250 ML* 250 ML IV ONE (20:08)
[2018-03-28 23:21] LABS: EGFR Non-African American 31.6 (>60)
[2018-03-28] MEDS ORDERED: Albumin Human 25%* 12.5 GM/50 ML BTL IV ONE (23:29)
[2018-03-29] MEDS: Piperacillin/Tazobac ADVAN(*) 3.375 GM in NS 0.9% 100 ML* 100 ML IVPB SCH (03:36)
[2018-03-29] MEDS: Heparin VIAL(*) 5000 UNITS/ML VIAL (FIVE THOUSAND) SUBCUT SCH ×3 (05:29→21:22)
[2018-03-29 06:24] LABS: EGFR Non-African American 32.1 (>60)
[2018-03-29 06:29] LABS: Hematocrit 27 % (42-52); Hemoglobin 8.9 g/dl (14.0-18.0); Mean Corpuscular HGB Conc 33 g/dl (31-36); Mean Corpuscular Hemoglobin 36 pg (27-31); Mean Corpuscular Volume 109 fL (80-94); Mean Platelet Volume 9.1 fL (7.4-10.4); Platelet Count 60 10^3/ul (150-450); Red Blood Count 2.46 10^6/ul (4.00-5.40); Red Cell Distribution Width 29 % (10.5-15); White Blood Count 6.4 10^3/ul (3.5-10.8)
[2018-03-29 07:08] LABS: ABS Basophils 0 10^3/ul (0-0.2); ABS Eosinophils 0 10^3/ul (0-0.6); ABS Monocytes 0.6 10^3/ul (0-0.8); ABS Neutrophils 4.8 10^3/ul (1.5-7.7); ABS Nucleated RBC 0.2 10^3/ul; Eosinophil % 0.2 % (0-6); Lymphocyte % 15.3 % (25-47); Nucleated Red Blood Cells % 3.2
--- NOTE | 2018-03-29 07:25 | PN ---
Hospitalist Progress Note Date of Service: 03/29/18 got called that his hr dipped down to 50s with sbp 80-90 atenolol was d/cd
[2018-03-29] MEDS: fentaNYL Patch Check Q Shift 1 NOTE FOLLOW UP SCH ×2 (07:43→19:59)
[2018-03-29] MEDS: Albumin Human 25%* 25 GM/100 ML BTL IV SCH ×2 (08:41→09:54)
[2018-03-29] MEDS: RiFAXimin* 550 MG TAB PO SCH ×2 (08:53→21:23)
[2018-03-29] MEDS: Docusate CAP* 100 MG PO SCH ×2 (08:53→22:27)
[2018-03-29] MEDS: Aspirin EC TAB* 81 MG TAB.EC PO SCH (08:54)
[2018-03-29] MEDS: Multivitamins/Minerals TAB PO SCH (08:54)
[2018-03-29] MEDS: Gabapentin CAP(*) 100 MG PO SCH ×4 (08:54→21:21)
[2018-03-29] MEDS: Sertraline* 50 MG TAB PO SCH (08:55)
[2018-03-29] MEDS: Thiamine TAB* 100 MG TAB PO SCH (08:55)
[2018-03-29] MEDS: Polyethyl Glycol/Propylene Gly OPHTH.SOLN BOTH EYES SCH ×4 (08:55→21:23)
[2018-03-29] MEDS: Folic Acid TAB* 1 MG PO SCH (08:55)
[2018-03-29] MEDS: BICALUTAMIDE 50 MG PO SCH (08:56)
[2018-03-29] MEDS ORDERED: Atenolol TAB* 25 MG PO SCH (09:00)
[2018-03-29] MEDS ORDERED: Nadolol TAB* 40 MG PO SCH (09:00)
[2018-03-29] MEDS ORDERED: Furosemide TAB* 20 MG PO SCH (09:00)
[2018-03-29] MEDS: Mupirocin 2% OINT* TUBE TOPICAL SCH ×2 (09:01→21:23)
[2018-03-29] MEDS: Polyethylene Glycol 3350* 17 GM PACKET PO SCH (09:02)
[2018-03-29] MEDS: ENZALUTAMIDE 40 MG PO SCH ×4 (09:05→22:27)
--- NOTE | 2018-03-29 09:47 | PN ---
Progress Note - Progress Note Date of Service: 03/29/18 SOAP: Subjective: [] confused, denies abd pain, concerned about shaky hands and difficult time eating ; recent EtoH use Objective: []97.1,90/50, 52, 98% gen: alert, oriented to person and place, +icterus neuro: +asterixis abd: distended, soft, NT Assessment: []MELD 34, INR 2.5, Na 138, bili14, Cr 2.09 No sbp on ascitic analysis Cirrhosis d/t active alcohol abuse ascites; s/p LVP; will have to limit diuretics d/t renal insuff, may need LVPs for sx control enceph: lactulose, xifaxan renal insuff: agree with albumin, limit diuretics egd at some point, sr. social media & mobile manager CT with colon thickening; doubt colitis, likely low albumin state; loose stools likely from lactulose will follow Roman Silva MD Plan: []
[2018-03-29] MEDS: Acetaminophen TAB* 325 MG PO PRN (14:31)
--- NOTE | 2018-03-29 14:44 | PN ---
Subjective Date of Service: 03/29/18 Interval History: HOSPITALIST PROGRESS NOTE Patient seen and examined at bedside. Care reviewed and d/w Elsa Waters RN. He's more awake today, sitting up in bed. Still confused, but opens eyes and follows simple commands. Family History: Unchanged from Admission Social History: Unchanged from Admission Past Medical History: Unchanged from Admission Objective Active Medications: Acetaminophen (Tylenol Tab*) 650 mg PO Q4H PRN PRN Reason: PAIN Last Admin: 03/29/18 14:31 Dose: 650 mg Aspirin (Aspirin Ec Tab*) 81 mg PO DAILY [facility] Last Admin: 03/29/18 08:54 Dose: 81 mg Bicalutamide (Casodex (Nf)) 50 mg PO DAILY [facility]; Protocol Last Admin: 03/29/18 08:56 Dose: 50 mg Dextrose (D50w Syringe 50 Ml*) 12.5 gm IV PUSH .FOR FS < 60 - SS PRN PRN Reason: FS < 60 Docusate Sodium (Colace Cap*) 100 mg PO BID [facility] Last Admin: 03/29/18 08:53 Dose: 100 mg Fentanyl (Duragesic Patch 100 Mcg/Hr *) 200 mcg TRANSDERM Q72H [facility] Last Admin: 03/28/18 01:21 Dose: 200 mcg Folic Acid (Folvite Tab*) 1 mg PO DAILY [facility] Last Admin: 03/29/18 08:55 Dose: 1 mg Gabapentin (Neurontin Cap(*)) 100 mg PO QID [facility] Last Admin: 03/29/18 12:46 Dose: 100 mg Heparin Sodium (Porcine) (Heparin Vial(*)) 5,000 units SUBCUT Q8HR [facility] Last Admin: 03/29/18 14:34 Dose: 5,000 units Lactulose (Lactulose*) 30 ml PO QID [facility] Last Admin: 03/29/18 12:47 Dose: 30 ml Lorazepam (Ativan Tab(*)) 0 - 6 mg PO .PER [facility] PROTOCOL [facility]; Protocol Multivitamins/Minerals (Theragran/Minerals Tab*) 1 tab PO DAILY [facility] Last Admin: 03/29/18 08:54 Dose: 1 tab Mupirocin (Bactroban 2 % Oint*) 1 applic TOPICAL BID [facility] Last Admin: 03/29/18 09:01 Dose: 1 applic Nadolol (Corgard Tab*) 20 mg PO DAILY [facility] Last Admin: 03/29/18 09:55 Dose: Not Given Nft: Xtandi 40 Mg 40 mg PO QID [facility] Last Admin: 03/29/18 12:50 Dose: Not Given Ondansetron HCl (Zofran Inj*) 4 mg IV Q6H PRN PRN Reason: NAUSEA/VOMITING Ondansetron HCl (Zofran Tab*) 4 mg PO Q6H PRN PRN Reason: NAUSEA/VOMITING Pharmacy Profile Note (Fentanyl Patch Check Q Shift) 1 note FOLLOW UP 0700, 1900 [facility] Last Admin: 03/29/18 07:43 Dose: 1 note Polyethyl Glycol/Propylene Glycol (Lubricant Eye Drops) 1 drop BOTH EYES QID [facility] Last Admin: 03/29/18 12:47 Dose: 1 drop Polyethylene Glycol/Electrolytes (Miralax*) 17 gm PO DAILY [facility] Last Admin: 03/29/18 09:02 Dose: Not Given Rifaximin (Xifaxan*) 550 mg PO BID [facility] Last Admin: 03/29/18 08:53 Dose: 550 mg Sertraline HCl (Zoloft*) 50 mg PO DAILY [facility] Last Admin: 03/29/18 08:55 Dose: 50 mg Thiamine HCl (Vitamin B-1 Tab*) 100 mg PO DAILY [facility] Last Admin: 03/29/18 08:55 Dose: 100 mg Vital Signs - 8 hr 03/29/18 03/29/18 03/29/18 08:00 08:03 08:39 Temperature 97.2 F 97.3 F Pulse Rate 52 50 Respiratory 24 24 20 Rate Blood Pressure 92/54 90/50 (mmHg) O2 Sat by Pulse 97 92 Oximetry 03/29/18 03/29/18 03/29/18 08:54 09:06 09:53 Temperature 97.1 F 97.2 F Pulse Rate 48 49 Respiratory 20 20 Rate Blood Pressure 87/50 95/49 (mmHg) O2 Sat by Pulse 96 94 Oximetry 03/29/18 03/29/18 03/29/18 10:00 10:14 12:00 Temperature 97.2 F 97.2 F Pulse Rate 51 55 Respiratory 20 20 22 Rate Blood Pressure 91/51 94/53 (mmHg) O2 Sat by Pulse 91 Oximetry 03/29/18 12:46 Temperature Pulse Rate Respiratory 20 Rate Blood Pressure (mmHg) O2 Sat by Pulse Oximetry Oxygen Devices in Use Now: Nasal Cannula - 2 liters Appearance: Elderly gentleman sitting up in bed in NAD Eyes: - - Jaundice is noted Ears/Nose/Mouth/Throat: Mucous Membranes Moist Neck: Trachea Midline Respiratory: Symmetrical Chest Expansion and Respiratory Effort, Clear to Auscultation Cardiovascular: RRR - Normal S1 and S2 Extremities: No Edema Neurological: - - Lethargic, arousable to voice, follows simple commands Result Diagrams: 03/29/18 05:35 03/29/18 05:35 Assess/Plan/Problems-Billing Assessment: this is a 62 yr old aa male with hx of chronic etoh dep presented with abd pain/ girth. pt got tapped in the er and had two liter out. initial wbc wnl but got rocphin for sbp prophylaxis - Patient Problems (1) Liver cirrhosis, alcoholic Comment: - With component of ETOH hepatitis. Patient has h/o hepatitis C also. - Paracentesis was negative for SBP. - S/p paracentesis in ED - BP could no tolerated Atenolol, low dose Furosemide and Aldactone so there were discontinued. - GI consult appreciated. (2) Hepatic encephalopathy Comment: - Continue Lactulose and Rifaximine. - Ammonia down to 90. (3) KHANG (acute kidney injury) Comment: - Will continue IV Albumin until >3.5 to help with oncotic pressure and fluid shift. - Continue to monitor Creatinine and UO. - No diuretics for now. (4) Colitis Comment: - CT showed diffuse submucosal edema of the colon suggestive of pancolitis. Abdome not tender on PE. Diarrhea started after Lactulose given. I have low suspicion for C. diff. - D/w GI - agree his submucosal edema is associated with portal HTN and does not represent infection - d/c Zosyn. (5) Thrombocytopenia Comment: - Secondary to portal HTN. No signs of bleeding at this time. - Continue to monitor. (6) EtOH dependence Comment: - Last drink was 4 days ago. - [facility] protocol. - Not scoring so far. (7) Lactic acidosis Comment: - Resolved. (8) Prostate cancer Comment: - With bone mets. - Continue pain management. - Receives Lupron [id number] and Xtandi. (9) DVT prophylaxis Comment: - Higher risk for VT due to malignancy, no signs of bleeding - SQ heparin. (10) Full code status Status and Disposition: Inpatient.
[2018-03-30] MEDS: Heparin VIAL(*) 5000 UNITS/ML VIAL (FIVE THOUSAND) SUBCUT SCH ×3 (05:20→21:46)
[2018-03-30 05:42] LABS: Hematocrit 30 % (42-52); Hemoglobin 9.8 g/dl (14.0-18.0); Mean Corpuscular HGB Conc 33 g/dl (31-36); Mean Corpuscular Hemoglobin 36 pg (27-31); Mean Corpuscular Volume 109 fL (80-94); Red Cell Distribution Width 29 % (10.5-15); White Blood Count 7.4 10^3/ul (3.5-10.8)
[2018-03-30 05:55] LABS: EGFR Non-African American 42.5 (>60)
[2018-03-30 06:19] LABS: Mean Platelet Volume 8.9 fL (7.4-10.4); Platelet Count 54 10^3/ul (150-450)
[2018-03-30 06:24] LABS: Monocytes % 5 % (0-7)
[2018-03-30 07:18] LABS: ABS Basophils 0 10^3/ul (0-0.2); ABS Eosinophils 0 10^3/ul (0-0.6); ABS Lymphocytes 0.5 10^3/ul (1.0-4.8); ABS Monocytes 0.5 10^3/ul (0-0.8); ABS Neutrophils 6.3 10^3/ul (1.5-7.7)
[2018-03-30] MEDS: fentaNYL Patch Check Q Shift 1 NOTE FOLLOW UP SCH ×2 (07:20→18:51)
[2018-03-30] MEDS: KCL 10 MEQ/50 ML IVPREMIX* 10 MEQ/50 ML BAG IV SCH ×3 (08:39→13:49)
[2018-03-30] MEDS: RiFAXimin* 550 MG TAB PO SCH ×2 (08:39→21:46)
[2018-03-30] MEDS: Polyethyl Glycol/Propylene Gly OPHTH.SOLN BOTH EYES SCH ×4 (08:40→21:45)
[2018-03-30] MEDS: BICALUTAMIDE 50 MG PO SCH (08:58)
[2018-03-30] MEDS: Gabapentin CAP(*) 100 MG PO SCH ×4 (08:59→21:40)
[2018-03-30] MEDS: Multivitamins/Minerals TAB PO SCH (09:00)
[2018-03-30] MEDS: Thiamine TAB* 100 MG TAB PO SCH (09:00)
[2018-03-30] MEDS: Sertraline* 50 MG TAB PO SCH (09:00)
[2018-03-30] MEDS: Folic Acid TAB* 1 MG PO SCH (09:00)
[2018-03-30] MEDS: Polyethylene Glycol 3350* 17 GM PACKET PO SCH (09:00)
[2018-03-30] MEDS: Aspirin EC TAB* 81 MG TAB.EC PO SCH (09:00)
[2018-03-30] MEDS: Docusate CAP* 100 MG PO SCH ×2 (09:00→20:31)
[2018-03-30] MEDS: ENZALUTAMIDE 40 MG PO SCH ×4 (09:01→21:45)
[2018-03-30] MEDS: Mupirocin 2% OINT* TUBE TOPICAL SCH ×2 (09:35→22:03)
[2018-03-30] MEDS ORDERED: KCL 20 MEQ/100 ML ONE (13:24)
[2018-03-30] MEDS ORDERED: IVPREMIX ONE (13:24)
[2018-03-30] MEDS ORDERED: KCL 10 MEQ/50 ML IVPREMIX* 10 MEQ/50 ML BAG ONE (13:36)
--- NOTE | 2018-03-30 13:36 | PN ---
Progress Note - Progress Note Date of Service: 03/30/18 SOAP: Subjective: [] no change, unsure of hospital, but knows he is in a hospital room; still with abd pain, no n/v Objective: []VS; 97.3, 116/50, 48, RR23, 97% nad, alert ot person +asterixis +bs, soft, distended, seems more full vs yesterday labs: hgb 9.8, plts 54, bili 15. 8, Cr down to 1.64 Assessment: []62 yo alcoholic with resulting alcoholic cirrhosis; renal insuff slightly better after albumin; need to avoid diuretics, but ascites seems increased; may need another LVP if symptomatic; continue with lactulose and xifaxan; no evidence for bleeding; will follow Roman Silva MD Plan: []
--- NOTE | 2018-03-30 13:58 | PN ---
Subjective Date of Service: 03/30/18 Interval History: HOSPITALIST PROGRESS NOTE Patient seen and examined at bedside. Care reviewed and d/w Katelynn Padilla RN. He's more awake today, knows he's in the hospital because "I drink too much". Describes drinking half a gallon of vodka a day. He got the year and President right, but started to ramble when I asked about his living arrangements. Denies pain, but belly is more distended. Family History: Unchanged from Admission Social History: Unchanged from Admission Past Medical History: Unchanged from Admission Objective Active Medications: Acetaminophen (Tylenol Tab*) 650 mg PO Q4H PRN PRN Reason: PAIN Last Admin: 03/29/18 14:31 Dose: 650 mg Aspirin (Aspirin Ec Tab*) 81 mg PO DAILY [facility] Last Admin: 03/30/18 09:00 Dose: 81 mg Bicalutamide (Casodex (Nf)) 50 mg PO DAILY [facility]; Protocol Last Admin: 03/30/18 08:58 Dose: 50 mg Dextrose (D50w Syringe 50 Ml*) 12.5 gm IV PUSH .FOR FS < 60 - SS PRN PRN Reason: FS < 60 Docusate Sodium (Colace Cap*) 100 mg PO BID [facility] Last Admin: 03/30/18 09:00 Dose: 100 mg Fentanyl (Duragesic Patch 100 Mcg/Hr *) 200 mcg TRANSDERM Q72H [facility] Last Admin: 03/28/18 01:21 Dose: 200 mcg Folic Acid (Folvite Tab*) 1 mg PO DAILY [facility] Last Admin: 03/30/18 09:00 Dose: 1 mg Gabapentin (Neurontin Cap(*)) 100 mg PO QID [facility] Last Admin: 03/30/18 08:59 Dose: 100 mg Heparin Sodium (Porcine) (Heparin Vial(*)) 5,000 units SUBCUT Q8HR [facility] Last Admin: 03/30/18 05:20 Dose: 5,000 units Heparin Sodium (Porcine) (Heparin Flush Picc/Ml/Cvc(*)) 1 ml FLUSH 0600,1800 [facility]; Protocol Lactulose (Lactulose*) 30 ml PO QID [facility] Last Admin: 03/30/18 09:00 Dose: 30 ml Lorazepam (Ativan Tab(*)) 0 - 6 mg PO .PER [place] PROTOCOL [facility]; Protocol Multivitamins/Minerals (Theragran/Minerals Tab*) 1 tab PO DAILY [facility] Last Admin: 03/30/18 09:00 Dose: 1 tab Mupirocin (Bactroban 2 % Oint*) 1 applic TOPICAL BID [facility] Last Admin: 03/30/18 09:35 Dose: 1 applic Nft: Xtandi 40 Mg 40 mg PO QID [facility] Last Admin: 03/30/18 09:01 Dose: Not Given Ondansetron HCl (Zofran Inj*) 4 mg IV Q6H PRN PRN Reason: NAUSEA/VOMITING Ondansetron HCl (Zofran Tab*) 4 mg PO Q6H PRN PRN Reason: NAUSEA/VOMITING Pharmacy Profile Note (Fentanyl Patch Check Q Shift) 1 note FOLLOW UP 0700, 1900 [facility] Last Admin: 03/30/18 07:20 Dose: 1 note Polyethyl Glycol/Propylene Glycol (Lubricant Eye Drops) 1 drop BOTH EYES QID [facility] Last Admin: 03/30/18 08:40 Dose: 1 drop Polyethylene Glycol/Electrolytes (Miralax*) 17 gm PO DAILY [facility] Last Admin: 03/30/18 09:00 Dose: 17 gm Rifaximin (Xifaxan*) 550 mg PO BID [facility] Last Admin: 03/30/18 08:39 Dose: 550 mg Sertraline HCl (Zoloft*) 50 mg PO DAILY [facility] Last Admin: 03/30/18 09:00 Dose: 50 mg Thiamine HCl (Vitamin B-1 Tab*) 100 mg PO DAILY [facility] Last Admin: 03/30/18 09:00 Dose: 100 mg Vital Signs - 8 hr 03/30/18 03/30/18 03/30/18 07:51 08:59 11:00 Temperature 97.3 F Pulse Rate 48 Respiratory 23 17 17 Rate Blood Pressure 115/60 (mmHg) O2 Sat by Pulse 97 Oximetry Oxygen Devices in Use Now: Nasal Cannula - 2 liters Appearance: Elderly gentleman, appears older than stated age, lying in bed in NAD. Eyes: - - + jaundice Ears/Nose/Mouth/Throat: Mucous Membranes Moist Neck: Trachea Midline Respiratory: Symmetrical Chest Expansion and Respiratory Effort, Clear to Auscultation Cardiovascular: RRR - Normal S1 and S2 Abdominal: - - Distended, ascites is present, not tender, BS+ Extremities: No Edema Neurological: - - AAOx2 (self and place) Result Diagrams: 03/30/18 05:30 03/30/18 05:30 Assess/Plan/Problems-Billing Assessment: this is a 62 yr old aa male with hx of chronic etoh dep presented with abd pain/ girth. pt got tapped in the er and had two liter out. initial wbc wnl but got rocphin for sbp prophylaxis - Patient Problems (1) Liver cirrhosis, alcoholic Comment: - With component of ETOH hepatitis. Patient has h/o hepatitis C also. - Paracentesis was negative for SBP. - S/p paracentesis in ED - BP could no tolerated Atenolol, low dose Furosemide and Aldactone so they were discontinued. - GI consult appreciated. (2) Hepatic encephalopathy Comment: - Continue Lactulose and Rifaximine. - Ammonia down to 68. (3) KHANG (acute kidney injury) Comment: - Will continue IV Albumin until >3.5 to help with oncotic pressure and fluid shift. - Creatinine down to 1.6, UO is improving. - Diuretics on hold for now. (4) Colitis Comment: - CT showed diffuse submucosal edema of the colon suggestive of pancolitis. Abdome not tender on PE. Diarrhea started after Lactulose given. - D/w GI - agree his submucosal edema is associated with portal HTN and does not represent infection - Zosyn discontinued. (5) Thrombocytopenia Comment: - Secondary to portal HTN. No signs of bleeding at this time. - Continue to monitor. (6) EtOH dependence Comment: - No signs of withdrawal - d/c WAM. (7) Lactic acidosis Comment: - Resolved. (8) Prostate cancer Comment: - With bone mets. - Continue pain management. - Receives Lupron [id number] and Xtandi. (9) DVT prophylaxis Comment: - Higher risk for VT due to malignancy, no signs of bleeding - SQ heparin, but will hold if plt<50. (10) Full code status Status and Disposition: Inpatient.
[2018-03-30] MEDS: Acetaminophen TAB* 325 MG PO PRN ×2 (14:20→21:40)
[2018-03-30] MEDS: Albumin Human 25%* 25 GM/100 ML BTL IV ONE ×2 (15:16→15:22)
[2018-03-31] MEDS: fentaNYL PATCHs 100 MCG/HR TRANSDERM SCH (00:52)
[2018-03-31 04:58] LABS: EGFR Non-African American 56.6 (>60)
[2018-03-31] MEDS ORDERED: KCL 10 MEQ/50 ML IVPREMIX* 10 MEQ/50 ML BAG IV ONE (05:30)
[2018-03-31] MEDS ORDERED: Potassium Chlor TAB* 20 MEQ TAB.ER PO ONE (05:30)
[2018-03-31] MEDS ORDERED: KCL 10 MEQ/50 ML IVPREMIX* 10 MEQ/50 ML BAG ONE (05:36)
[2018-03-31 05:37] LABS: Monocytes % 9 %
[2018-03-31 05:39] LABS: ABS Basophils 0 10^3/ul (0-0.2); ABS Eosinophils 0 10^3/ul (0-0.6); ABS Lymphocytes 0.4 10^3/ul (1.0-4.8); ABS Monocytes 0.5 10^3/ul (0-0.8); ABS Neutrophils 6.6 10^3/ul (1.5-7.7); ABS Nucleated RBC 0.4 10^3/ul; Hematocrit 30 % (42-52); Mean Corpuscular HGB Conc 33 g/dl (31-36); Mean Corpuscular Hemoglobin 35 pg (27-31); Mean Corpuscular Volume 107 fL (80-94); Mean Platelet Volume 9.7 fL (7.4-10.4); Platelet Count 43 10^3/ul (150-450); Red Blood Count 2.83 10^6/ul (4.00-5.40); Red Cell Distribution Width 29 % (10.5-15); White Blood Count 7.5 10^3/ul (3.5-10.8)
[2018-03-31] MEDS: Heparin VIAL(*) 5000 UNITS/ML VIAL (FIVE THOUSAND) SUBCUT SCH (05:45)
[2018-03-31] MEDS: fentaNYL Patch Check Q Shift 1 NOTE FOLLOW UP SCH ×2 (06:59→18:52)
[2018-03-31] MEDS: KCL 10 MEQ/50 ML IVPREMIX* 10 MEQ/50 ML BAG IV SCH ×3 (08:00→10:55)
[2018-03-31] MEDS: Polyethylene Glycol 3350* 17 GM PACKET PO SCH (08:00)
[2018-03-31] MEDS: Multivitamins/Minerals TAB PO SCH (08:05)
[2018-03-31] MEDS: Gabapentin CAP(*) 100 MG PO SCH ×4 (08:05→22:22)
[2018-03-31] MEDS: Thiamine TAB* 100 MG TAB PO SCH (08:05)
[2018-03-31] MEDS: RiFAXimin* 550 MG TAB PO SCH ×2 (08:05→22:22)
[2018-03-31] MEDS: Sertraline* 50 MG TAB PO SCH (08:05)
[2018-03-31] MEDS: Potassium Chlor TAB* 20 MEQ TAB.ER PO SCH ×3 (08:05→22:26)
[2018-03-31] MEDS: Folic Acid TAB* 1 MG PO SCH (08:05)
[2018-03-31] MEDS: Docusate CAP* 100 MG PO SCH ×2 (08:06→22:17)
[2018-03-31] MEDS: BICALUTAMIDE 50 MG PO SCH (08:06)
[2018-03-31] MEDS: Polyethyl Glycol/Propylene Gly OPHTH.SOLN BOTH EYES SCH ×4 (08:06→22:24)
[2018-03-31] MEDS: ENZALUTAMIDE 40 MG PO SCH ×4 (08:07→22:18)
[2018-03-31] MEDS: Mupirocin 2% OINT* TUBE TOPICAL SCH ×2 (08:08→22:24)
--- NOTE | 2018-03-31 13:38 | BRIEFOPN ---
Brief Operative Note - Surgery Procedures: Procedures Pre-OP Diagnoses: ascities Post-op Diagnosis: same Procedure: paracentesis Surgeon: Jason Asst: none Anethesia: local EBL: none IVF: none Specimen: none Drains: none
[2018-03-31] MEDS: Acetaminophen TAB* 325 MG PO PRN (13:56)
--- NOTE | 2018-03-31 13:58 | PN ---
Subjective Date of Service: 03/31/18 Interval History: HOSPITALIST PROGRESS NOTE Patient seen and examined at bedside. Care reviewed and d/w Teri Bonds RN. He is much more awake and coherent today. His major complaint is he does not want to be in the recliner anymore because is not comfortable. He's unable to get out of it by himself. Family History: Unchanged from Admission Social History: Unchanged from Admission Past Medical History: Unchanged from Admission Objective Active Medications: Acetaminophen (Tylenol Tab*) 650 mg PO Q4H PRN PRN Reason: PAIN Last Admin: 03/30/18 21:40 Dose: 650 mg Bicalutamide (Casodex (Nf)) 50 mg PO DAILY [facility]; Protocol Last Admin: 03/31/18 08:06 Dose: 50 mg Dextrose (D50w Syringe 50 Ml*) 12.5 gm IV PUSH .FOR FS < 60 - SS PRN PRN Reason: FS < 60 Docusate Sodium (Colace Cap*) 100 mg PO BID [facility] Last Admin: 03/31/18 08:06 Dose: 100 mg Fentanyl (Duragesic Patch 100 Mcg/Hr *) 200 mcg TRANSDERM Q72H [facility] Last Admin: 03/31/18 00:52 Dose: 200 mcg Folic Acid (Folvite Tab*) 1 mg PO DAILY [facility] Last Admin: 03/31/18 08:05 Dose: 1 mg Gabapentin (Neurontin Cap(*)) 100 mg PO QID [facility] Last Admin: 03/31/18 08:05 Dose: 100 mg Heparin Sodium (Porcine) (Heparin Flush Picc/Ml/Cvc(*)) 1 ml FLUSH 0600,1800 [facility]; Protocol Last Admin: 03/31/18 04:42 Dose: 3 ml Lactulose (Lactulose*) 30 ml PO QID [facility] Last Admin: 03/31/18 08:06 Dose: 30 ml Multivitamins/Minerals (Theragran/Minerals Tab*) 1 tab PO DAILY [facility] Last Admin: 03/31/18 08:05 Dose: 1 tab Mupirocin (Bactroban 2 % Oint*) 1 applic TOPICAL BID [facility] Last Admin: 03/31/18 08:08 Dose: 1 applic Nft: Xtandi 40 Mg 40 mg PO QID [facility] Last Admin: 03/31/18 08:07 Dose: Not Given Ondansetron HCl (Zofran Inj*) 4 mg IV Q6H PRN PRN Reason: NAUSEA/VOMITING Ondansetron HCl (Zofran Tab*) 4 mg PO Q6H PRN PRN Reason: NAUSEA/VOMITING Pharmacy Profile Note (Fentanyl Patch Check Q Shift) 1 note FOLLOW UP 0700, 1900 [facility] Last Admin: 03/31/18 06:59 Dose: 1 note Polyethyl Glycol/Propylene Glycol (Lubricant Eye Drops) 1 drop BOTH EYES QID [facility] Last Admin: 03/31/18 08:06 Dose: 1 drop Polyethylene Glycol/Electrolytes (Miralax*) 17 gm PO DAILY [facility] Last Admin: 03/31/18 08:00 Dose: 17 gm Potassium Chloride (Klor Con Er Tab*) 20 meq PO TID [facility] Last Admin: 03/31/18 08:05 Dose: 20 meq Rifaximin (Xifaxan*) 550 mg PO BID [facility] Last Admin: 03/31/18 08:05 Dose: 550 mg Sertraline HCl (Zoloft*) 50 mg PO DAILY [facility] Last Admin: 03/31/18 08:05 Dose: 50 mg Thiamine HCl (Vitamin B-1 Tab*) 100 mg PO DAILY [facility] Last Admin: 03/31/18 08:05 Dose: 100 mg Vital Signs - 8 hr 03/31/18 03/31/18 03/31/18 08:00 08:05 08:17 Temperature 97.6 F Pulse Rate 66 Respiratory 16 22 22 Rate Blood Pressure 114/70 (mmHg) O2 Sat by Pulse 99 Oximetry 03/31/18 03/31/18 11:00 12:01 Temperature 97.5 F Pulse Rate 63 Respiratory 18 Rate Blood Pressure 91/44 (mmHg) O2 Sat by Pulse 98 Oximetry Oxygen Devices in Use Now: None Appearance: Elderly frail gentleman, appears older than stated age, lying in recliner in [facility]. Eyes: - - Jaundice is present Ears/Nose/Mouth/Throat: Mucous Membranes Moist Neck: Trachea Midline Respiratory: Symmetrical Chest Expansion and Respiratory Effort, Clear to Auscultation Cardiovascular: RRR - Normal S1 and S2 Abdominal: - - Significant distention secondary to ascites, NT, BS+ Extremities: No Edema Neurological: - - AAOx2 (self and place), SALAZAR Result Diagrams: 03/31/18 04:25 03/31/18 04:25 Assess/Plan/Problems-Billing Assessment: this is a 62 yr old aa male with hx of chronic etoh dep presented with abd pain/ girth. pt got tapped in the er and had two liter out. initial wbc wnl but got rocphin for sbp prophylaxis - Patient Problems (1) Liver cirrhosis, alcoholic Comment: - With component of ETOH hepatitis. Patient has h/o hepatitis C also. - Paracentesis was negative for SBP. - S/p paracentesis in ED - BP could no tolerated Atenolol, low dose Furosemide and Aldactone so they were discontinued. - GI consult appreciated. - Plan for another therapeutic paracentesis today. (2) Hepatic encephalopathy Comment: - Continue Lactulose and Rifaximine. - Improving - Ammonia down to 45. (3) Hypokalemia Comment: - Replete. (4) KHANG (acute kidney injury) Comment: - Will continue IV Albumin until >3.5 to help with oncotic pressure and fluid shift. - Creatinine down to 1.2. - Diuretics on hold for now. (5) Colitis Comment: - CT showed diffuse submucosal edema of the colon suggestive of pancolitis. Abdome not tender on PE. Diarrhea started after Lactulose given. - D/w GI - agree his submucosal edema is associated with portal HTN and does not represent infection - Zosyn discontinued. (6) Thrombocytopenia Comment: - Secondary to portal HTN. No signs of bleeding at this time. - Continue to monitor. (7) EtOH dependence Comment: - No signs of withdrawal - d/c WAM. (8) Lactic acidosis Comment: - Resolved. (9) Prostate cancer Comment: - With bone mets. - Continue pain management. - Receives Lupron [id number] and Xtandi. (10) DVT prophylaxis Comment: - Hold SQ heparin as plt<50. - SCDs. (11) Full code status Status and Disposition: Inpatient.
[2018-03-31] MEDS ORDERED: Albumin Human 25%* 25 GM/100 ML BTL IV ONE (15:00)
[2018-04-01 00:05] LABS: EGFR Non-African American 44.4 (>60)
[2018-04-01 05:45] LABS: Hematocrit 34 % (42-52); Hemoglobin 11.1 g/dl (14.0-18.0); Mean Corpuscular HGB Conc 33 g/dl (31-36); Mean Corpuscular Hemoglobin 35 pg (27-31); Mean Corpuscular Volume 107 fL (80-94); Platelet Count 47 10^3/ul (150-450); Red Blood Count 3.15 10^6/ul (4.00-5.40); Red Cell Distribution Width 29 % (10.5-15)
[2018-04-01 05:56] LABS: EGFR Non-African American 42.2 (>60)
[2018-04-01 06:08] LABS: ABS Basophils 0 10^3/ul (0-0.2); ABS Eosinophils 0 10^3/ul (0-0.6); ABS Lymphocytes 0.4 10^3/ul (1.0-4.8); ABS Monocytes 0.7 10^3/ul (0-0.8); ABS Neutrophils 10.8 10^3/ul (1.5-7.7); ABS Nucleated RBC 0.7 10^3/ul
[2018-04-01 06:10] LABS: Monocytes % 5 %
[2018-04-01] MEDS: Polyethylene Glycol 3350* 17 GM PACKET PO SCH (09:07)
[2018-04-01] MEDS: Mupirocin 2% OINT* TUBE TOPICAL SCH ×2 (09:07→19:58)
[2018-04-01] MEDS: BICALUTAMIDE 50 MG PO SCH (09:11)
[2018-04-01] MEDS: Polyethyl Glycol/Propylene Gly OPHTH.SOLN BOTH EYES SCH ×4 (09:11→19:56)
[2018-04-01] MEDS: Sertraline* 50 MG TAB PO SCH (09:12)
[2018-04-01] MEDS: Multivitamins/Minerals TAB PO SCH (09:12)
[2018-04-01] MEDS: Thiamine TAB* 100 MG TAB PO SCH (09:12)
[2018-04-01] MEDS: RiFAXimin* 550 MG TAB PO SCH ×2 (09:12→19:55)
[2018-04-01] MEDS: Gabapentin CAP(*) 100 MG PO SCH ×4 (09:12→19:55)
[2018-04-01] MEDS: Docusate CAP* 100 MG PO SCH ×2 (09:12→19:55)
[2018-04-01] MEDS: Folic Acid TAB* 1 MG PO SCH (09:12)
[2018-04-01] MEDS: Potassium Chlor TAB* 20 MEQ TAB.ER PO SCH ×3 (09:12→19:56)
[2018-04-01] MEDS: ENZALUTAMIDE 40 MG PO SCH ×4 (09:13→19:58)
[2018-04-01] MEDS: fentaNYL Patch Check Q Shift 1 NOTE FOLLOW UP SCH ×2 (12:35→18:52)
[2018-04-01] MEDS ORDERED: Spironolactone TAB* 25 MG PO SCH (15:45)
--- NOTE | 2018-04-01 15:47 | PN ---
Subjective Date of Service: 04/01/18 Interval History: Patient is rather sedated but arousable and more oriented than from previous record. Patient mainly concerned about being thirsty and concern about his dog. Patient denies CP, SOB, N/V, abdominal pain, F/C, or dizziness on standing. Patient has limited awareness of his disease state and does not know where he is besides being in a hospital and does not know the day. Family History: Unchanged from Admission Social History: Unchanged from Admission Past Medical History: Unchanged from Admission Objective Active Medications: Acetaminophen (Tylenol Tab*) 650 mg PO Q4H PRN PRN Reason: PAIN Last Admin: 03/31/18 13:56 Dose: 650 mg Bicalutamide (Casodex (Nf)) 50 mg PO DAILY [facility]; Protocol Last Admin: 04/01/18 09:11 Dose: 50 mg Dextrose (D50w Syringe 50 Ml*) 12.5 gm IV PUSH .FOR FS < 60 - SS PRN PRN Reason: FS < 60 Docusate Sodium (Colace Cap*) 100 mg PO BID [facility] Last Admin: 04/01/18 09:12 Dose: 100 mg Fentanyl (Duragesic Patch 100 Mcg/Hr *) 200 mcg TRANSDERM Q72H [facility] Last Admin: 03/31/18 00:52 Dose: 200 mcg Folic Acid (Folvite Tab*) 1 mg PO DAILY [facility] Last Admin: 04/01/18 09:12 Dose: 1 mg Furosemide (Lasix Tab*) 20 mg PO DAILY [facility] Gabapentin (Neurontin Cap(*)) 100 mg PO QID [facility] Last Admin: 04/01/18 14:45 Dose: 100 mg Heparin Sodium (Porcine) (Heparin Flush Picc/Ml/Cvc(*)) 1 ml FLUSH 0600,1800 [facility]; Protocol Last Admin: 04/01/18 05:08 Dose: 3 ml Lactulose (Lactulose*) 30 ml PO QID [facility] Last Admin: 04/01/18 14:45 Dose: 30 ml Midodrine (Midodrine (Nf)) 5 mg PO BID [facility]; Protocol Multivitamins/Minerals (Theragran/Minerals Tab*) 1 tab PO DAILY [facility] Last Admin: 04/01/18 09:12 Dose: 1 tab Mupirocin (Bactroban 2 % Oint*) 1 applic TOPICAL BID [facility] Last Admin: 04/01/18 09:07 Dose: 1 applic Nft: Xtandi 40 Mg 40 mg PO QID [facility] Last Admin: 04/01/18 14:46 Dose: Not Given Ondansetron HCl (Zofran Inj*) 4 mg IV Q6H PRN PRN Reason: NAUSEA/VOMITING Ondansetron HCl (Zofran Tab*) 4 mg PO Q6H PRN PRN Reason: NAUSEA/VOMITING Pharmacy Profile Note (Fentanyl Patch Check Q Shift) 1 note FOLLOW UP 0700, 1900 [facility] Last Admin: 04/01/18 12:35 Dose: 1 note Polyethyl Glycol/Propylene Glycol (Lubricant Eye Drops) 1 drop BOTH EYES QID [facility] Last Admin: 04/01/18 14:45 Dose: 1 drop Polyethylene Glycol/Electrolytes (Miralax*) 17 gm PO DAILY [facility] Last Admin: 04/01/18 09:07 Dose: 17 gm Potassium Chloride (Klor Con Er Tab*) 20 meq PO TID [facility] Last Admin: 04/01/18 14:46 Dose: 20 meq Rifaximin (Xifaxan*) 550 mg PO BID [facility] Last Admin: 04/01/18 09:12 Dose: 550 mg Sertraline HCl (Zoloft*) 50 mg PO DAILY [facility] Last Admin: 04/01/18 09:12 Dose: 50 mg Spironolactone (Aldactone Tab*) 50 mg PO DAILY [facility] Thiamine HCl (Vitamin B-1 Tab*) 100 mg PO DAILY [facility] Last Admin: 04/01/18 09:12 Dose: 100 mg Vital Signs - 8 hr 04/01/18 04/01/18 04/01/18 08:00 09:12 11:15 Temperature Pulse Rate Respiratory 22 20 18 Rate Blood Pressure (mmHg) O2 Sat by Pulse Oximetry 04/01/18 04/01/18 11:49 14:45 Temperature 96.8 F Pulse Rate 73 Respiratory 20 20 Rate Blood Pressure 113/68 (mmHg) O2 Sat by Pulse 99 Oximetry Oxygen Devices in Use Now: None Appearance: Patient is a 62yo male who appears older than stated age and is sitting in the bed in NAD. Eyes: PERRLA, - - Icterus Ears/Nose/Mouth/Throat: NL Teeth, Lips, Gums, Clear Oropharnyx, Mucous Membranes Moist Neck: NL Appearance and Movements; NL JVP, Trachea Midline Respiratory: Symmetrical Chest Expansion and Respiratory Effort, Clear to Auscultation Cardiovascular: NL Sounds; No Murmurs; No JVD, RRR, No Edema Abdominal: - - Slightly tender. Hepatomegaly. Moderate Ascites. Lymphatic: No Cervical Adenopathy Extremities: No Edema, No Clubbing, Cyanosis Skin: No Nodules or Sclerosis, - - Jaundice Neurological: NL Sensation, NL Muscle Strength and Tone, - - CN II-XII intact. No asterixis Result Diagrams: 04/01/18 05:10 04/01/18 05:10 Microbiology and Other Data: Microbiology 03/27/18 23:00 Gram Stain - Final Paracentesis Fluid Body Fluid Culture - Preliminary No Growth Day 1 03/27/18 22:13 Blood Culture - Preliminary Blood Venous No Growth Day 1 Assess/Plan/Problems-Billing Assessment: this is a 62 yr old aa male with hx of chronic etoh dependance and prostate cancer with bone metastases who presented with abd pain/girth. pt got tapped in the er and had two liter out. Patient was ruled out for SBP but has had hypotension and KHANG with need for repeat paracentesis. - Patient Problems (1) Liver cirrhosis, alcoholic Current Visit: Yes Status: Acute Code(s): K70.30 - ALCOHOLIC CIRRHOSIS OF LIVER WITHOUT ASCITES SNOMED Code(s): 860556861 Comment: - With component of ETOH hepatitis. Patient has h/o hepatitis C also. - Paracentesis was negative for SBP. - S/p paracentesis x2. Ascites improved - GI consult appreciated. - Will resinstitute diuretics and start midodrine for low BP and KHANG. - Albumin PRN. (2) Hepatic encephalopathy Current Visit: Yes Status: Acute Code(s): K72.90 - HEPATIC FAILURE, UNSPECIFIED WITHOUT COMA SNOMED Code(s): 66963439 Comment: - Continue Lactulose and Rifaximin - Improving clinically. (3) KHANG (acute kidney injury) Current Visit: Yes Status: Acute Code(s): N17.9 - ACUTE KIDNEY FAILURE, UNSPECIFIED SNOMED Code(s): 73327283 Comment: - Increased Albumin, will give PRN - Creatinine again increasing. Will watch closely with paracentesis and diuresis - Check Urine Sodium to clarify prerenal disease vs HRS type II. (4) EtOH dependence Current Visit: Yes Status: Acute Code(s): F10.20 - ALCOHOL DEPENDENCE, UNCOMPLICATED SNOMED Code(s): 85521335 Comment: - No signs of withdrawal (5) Prostate cancer Current Visit: Yes Status: Acute Code(s): C61 - MALIGNANT NEOPLASM OF PROSTATE SNOMED Code(s): 596896055 Comment: - With bone mets. - Continue pain management. - Receives Lupron [id number] Calan, and Xtandi. (6) Thrombocytopenia Current Visit: Yes Status: Acute Code(s): D69.6 - THROMBOCYTOPENIA, UNSPECIFIED SNOMED Code(s): 126469722 Comment: - Secondary to portal HTN. No signs of bleeding at this time. - Continue to monitor. (7) DVT prophylaxis Current Visit: Yes Status: Acute Code(s): IBO4969 - SNOMED Code(s): 112127229 Comment: - Hold SQ heparin as plt<50. - SCDs. (8) Full code status Current Visit: Yes Status: Acute Code(s): Z78.9 - OTHER SPECIFIED HEALTH STATUS SNOMED Code(s): 994446477 Status and Disposition: Inpatient.
[2018-04-01] MEDS ORDERED: Furosemide TAB* 20 MG PO SCH (16:00)
[2018-04-01] MEDS: Acetaminophen TAB* 325 MG PO PRN (17:16)
[2018-04-01] MEDS: CMC:Midodrine (NF) 5 MG TAB PO SCH ×2 (17:16→19:56)
[2018-04-02 05:27] LABS: Hematocrit 36 % (42-52); Hemoglobin 11.8 g/dl (14.0-18.0); Mean Corpuscular HGB Conc 32 g/dl (31-36); Mean Corpuscular Hemoglobin 35 pg (27-31); Mean Corpuscular Volume 109 fL (80-94); Mean Platelet Volume 11.4 fL (7.4-10.4); Platelet Count 64 10^3/ul (150-450); Red Blood Count 3.34 10^6/ul (4.00-5.40); Red Cell Distribution Width 28 % (10.5-15)
[2018-04-02 05:32] LABS: INR 3.06 (0.77-1.02)
[2018-04-02 05:45] LABS: EGFR Non-African American 22.3 (>60)
[2018-04-02 05:49] LABS: Monocytes % 3 %
--- NOTE | 2018-04-02 06:00 | PN ---
Progress Note - Progress Note Date of Service: 04/02/18 Note: Paged for bicarb of 14. Worsening renal failure and appears to be oliguric. Patient appears to have end stage liver disease secondary to alcoholic cirrhosis with hepatitis C, now what appears to be hepatorenal syndrome. Also with prostate cancer with bony mets. Patient is a full code. He is eligible for hospice. Recommend discussion regarding goals of care with patient if he has the capacity.
[2018-04-02] MEDS: fentaNYL Patch Check Q Shift 1 NOTE FOLLOW UP SCH ×2 (06:56→19:19)
[2018-04-02] MEDS ORDERED: D5W 1/2 NS 1000 ML BAG* 1,000 ML IV SCH (08:00)
[2018-04-02] MEDS: Albumin Human 25%* 25 GM/100 ML BTL IV SCH ×3 (08:42→19:32)
[2018-04-02] MEDS ORDERED: Potassium Chlor TAB* 20 MEQ TAB.ER PO SCH (09:00)
[2018-04-02] MEDS ORDERED: CMC:Midodrine (NF) 5 MG TAB PO SCH (09:00)
[2018-04-02] MEDS: Docusate CAP* 100 MG PO SCH (09:46)
[2018-04-02] MEDS: Gabapentin CAP(*) 100 MG PO SCH ×4 (09:46→21:20)
[2018-04-02] MEDS: Folic Acid TAB* 1 MG PO SCH (09:46)
[2018-04-02 09:47] LABS: Urine Appearance Cloudy; Urine Blood 3+ (Negative); Urine Color Amber; Urine Ketones Negative (Negative); Urine Protein 1+(30 mg/dL) (Negative); Urine Red Blood Cell 3+(>10/hpf) (Absent); Urine Specific Gravity 1.014 (1.010-1.030); Urine Urobilinogen Positive (Negative); Urine White Blood Cell 3+(>20/hpf) (Absent)
[2018-04-02] MEDS: Thiamine TAB* 100 MG TAB PO SCH (09:47)
[2018-04-02] MEDS: RiFAXimin* 550 MG TAB PO SCH (09:47)
[2018-04-02] MEDS: Polyethyl Glycol/Propylene Gly OPHTH.SOLN BOTH EYES SCH (09:48)
[2018-04-02] MEDS: Multivitamins/Minerals TAB PO SCH (09:48)
[2018-04-02] MEDS: Sertraline* 50 MG TAB PO SCH (09:48)
[2018-04-02] MEDS: Polyethylene Glycol 3350* 17 GM PACKET PO SCH (09:49)
[2018-04-02 09:50] LABS: EGFR Non-African American 20.1 (>60)
[2018-04-02] MEDS: Octreotide Acetate* 500 MCG in NS 0.9% 100 ML* 100 ML IVPB SCH ×2 (11:01→19:38)
[2018-04-02] MEDS: ENZALUTAMIDE 40 MG PO SCH (11:04)
[2018-04-02] MEDS: SODIUM BICARBONATE IV SCH ×2 (11:54→23:27)
[2018-04-02] MEDS: D5W IV SCH ×2 (11:54→23:27)
[2018-04-02] MEDS ORDERED: cefTRIAXone(*) 1 GM in NS 0.9% 50 ML* 50 ML IVPB SCH (12:00)
[2018-04-02] MEDS ORDERED: Morphine VIAL* 4 MG/ML VIAL (1 ml vial) IV PRN ×2 (13:12→22:58)
[2018-04-02] MEDS: CMCS:Midodrine (NF) 5 MG TAB PO SCH ×2 (14:10→21:21)
[2018-04-02] MEDS: Morphine VIAL* 4 MG/ML VIAL (1 ml vial) IV PRN ×4 (15:56→22:10)
--- NOTE | 2018-04-02 16:42 | PN ---
Subjective Date of Service: 04/02/18 Interval History: Patient is feeling ok but any other history is difficult to obtain. Patient denies other pain. Discussed with patient his poor prognosis and the possibility of him needing dialysis and patient was unable to form a coherent response. Patient is fixated on and his desire to be buried next to his parents again. Discussed with patient's son and sister his poor prognosis and the decision was made to not transfer the patient for dialysis and to avoid painful or heroic efforts. DNR/DNI explained and signed over the phone. Family History: Unchanged from Admission Social History: Unchanged from Admission Past Medical History: Unchanged from Admission Objective Active Medications: Dextrose (D50w Syringe 50 Ml*) 12.5 gm IV PUSH .FOR FS < 60 - SS PRN PRN Reason: FS < 60 Fentanyl (Duragesic Patch 100 Mcg/Hr *) 200 mcg TRANSDERM Q72H [facility] Last Admin: 03/31/18 00:52 Dose: 200 mcg Gabapentin (Neurontin Cap(*)) 100 mg PO QID [facility] Last Admin: 04/02/18 13:03 Dose: 100 mg Heparin Sodium (Porcine) (Heparin Flush Picc/Ml/Cvc(*)) 1 ml FLUSH 0600,1800 [facility]; Protocol Last Admin: 04/02/18 05:07 Dose: 1 ml Albumin Human (Albumin Human 25%*) 25 gm in 100 mls @ 120 mls/hr IV Q6H [facility] Stop: 04/03/18 01:49 Last Admin: 04/02/18 14:08 Dose: 120 mls/hr Octreotide Acetate 500 mcg/ (Sodium Chloride) 101 mls @ 10.1 mls/hr IVPB Q10H [facility] Last Admin: 04/02/18 11:01 Dose: 10.1 mls/hr Ceftriaxone Sodium 1 gm/ (Sodium Chloride) 50 mls @ 200 mls/hr IVPB Q24H [facility] Last Admin: 04/02/18 12:52 Dose: 200 mls/hr Sodium Bicarbonate 75 meq/ (Dextrose) 1,000 mls @ 75 mls/hr IV Q13H [facility] Last Admin: 04/02/18 11:54 Dose: 75 mls/hr Lactulose (Lactulose*) 30 ml PO QID [facility] Last Admin: 04/02/18 13:09 Dose: Not Given Midodrine (Midodrine (Nf)) 10 mg PO TID [facility]; Protocol Last Admin: 04/02/18 14:10 Dose: Not Given Morphine Sulfate (Morphine Vial*) 2 mg IV Q2H PRN PRN Reason: PAIN - MILD Last Admin: 04/02/18 15:56 Dose: 2 mg Ondansetron HCl (Zofran Inj*) 4 mg IV Q6H PRN PRN Reason: NAUSEA/VOMITING Pharmacy Profile Note (Fentanyl Patch Check Q Shift) 1 note FOLLOW UP 0700, 1900 [facility] Last Admin: 04/02/18 06:56 Dose: 1 note Potassium Chloride (Klor Con Er Tab*) 20 meq PO DAILY [facility] Last Admin: 04/02/18 09:47 Dose: 20 meq Sertraline HCl (Zoloft*) 50 mg PO DAILY [facility] Last Admin: 04/02/18 09:48 Dose: 50 mg Vital Signs - 8 hr 04/02/18 04/02/18 04/02/18 09:46 09:50 11:33 Temperature Pulse Rate 65 Respiratory 20 18 Rate Blood Pressure 100/58 129/68 (mmHg) O2 Sat by Pulse 94 Oximetry 04/02/18 04/02/18 04/02/18 11:45 11:55 12:00 Temperature 96.8 F Pulse Rate 58 60 60 Respiratory 19 20 19 Rate Blood Pressure 122/75 122/75 123/63 (mmHg) O2 Sat by Pulse 97 94 93 Oximetry 04/02/18 04/02/18 04/02/18 12:01 12:15 12:30 Temperature Pulse Rate 59 60 69 Respiratory 18 16 18 Rate Blood Pressure 121/65 116/53 (mmHg) O2 Sat by Pulse 92 92 93 Oximetry 04/02/18 04/02/18 04/02/18 13:00 13:15 13:26 Temperature Pulse Rate 62 65 Respiratory 17 16 24 Rate Blood Pressure 123/66 116/68 (mmHg) O2 Sat by Pulse 95 94 Oximetry 04/02/18 04/02/18 04/02/18 13:30 13:45 14:00 Temperature Pulse Rate 63 64 60 Respiratory 18 19 24 Rate Blood Pressure 134/70 111/69 124/77 (mmHg) O2 Sat by Pulse 92 92 93 Oximetry 04/02/18 04/02/18 04/02/18 14:01 14:15 14:30 Temperature Pulse Rate 59 65 65 Respiratory 18 15 16 Rate Blood Pressure 119/68 123/69 (mmHg) O2 Sat by Pulse 90 95 93 Oximetry 04/02/18 04/02/18 04/02/18 14:46 15:00 15:01 Temperature Pulse Rate 65 66 66 Respiratory 21 20 18 Rate Blood Pressure 122/74 127/91 (mmHg) O2 Sat by Pulse 94 95 95 Oximetry 04/02/18 04/02/18 04/02/18 15:15 15:30 15:56 Temperature Pulse Rate 62 59 Respiratory 24 23 22 Rate Blood Pressure 112/72 122/67 (mmHg) O2 Sat by Pulse 93 89 Oximetry Oxygen Devices in Use Now: None Appearance: Patient is a 62yo male who appears older than stated age and is sitting in the bed moaning frequently. Eyes: PERRLA, - - Severely Icteric Ears/Nose/Mouth/Throat: NL Teeth, Lips, Gums, Clear Oropharnyx, Mucous Membranes Moist Neck: NL Appearance and Movements; NL JVP, Trachea Midline Respiratory: Symmetrical Chest Expansion and Respiratory Effort, Clear to Auscultation Cardiovascular: NL Sounds; No Murmurs; No JVD, RRR, No Edema Abdominal: NL Sounds; No Tenderness; No Distention, - - Ascites. Lymphatic: No Cervical Adenopathy Extremities: No Edema, No Clubbing, Cyanosis Skin: No Rash or Ulcers, No Nodules or Sclerosis Neurological: - - CN II-XII grossly intact. Drowsy and not oriented to place or situation. Result Diagrams: 04/02/18 05:00 04/02/18 09:02 Microbiology and Other Data: Microbiology 03/27/18 23:00 Gram Stain - Final Paracentesis Fluid Body Fluid Culture - Preliminary No Growth Day 1 03/27/18 22:13 Blood Culture - Preliminary Blood Venous No Growth Day 1 Assess/Plan/Problems-Billing Assessment: this is a 62 yr old aa male with hx of chronic etoh dependance and prostate cancer with bone metastases who presented with abd pain/girth. pt got tapped in the er and had two liter out. Patient was ruled out for SBP but has had hypotension and KHANG with need for repeat paracentesis. - Patient Problems (1) Liver cirrhosis, alcoholic Current Visit: Yes Status: Acute Code(s): K70.30 - ALCOHOLIC CIRRHOSIS OF LIVER WITHOUT ASCITES SNOMED Code(s): 339579251 Comment: - With component of ETOH hepatitis. Patient has h/o hepatitis C also. - Paracentesis was negative for SBP. - S/p paracentesis x2. Ascites improved - GI consult appreciated. - Will resinstitute diuretics and start midodrine for low BP and KHANG. - Albumin PRN. (2) Hepatic encephalopathy Current Visit: Yes Status: Acute Code(s): K72.90 - HEPATIC FAILURE, UNSPECIFIED WITHOUT COMA SNOMED Code(s): 77601602 Comment: - Continue Lactulose and Rifaximin - Improving clinically. (3) KHANG (acute kidney injury) Current Visit: Yes Status: Acute Code(s): N17.9 - ACUTE KIDNEY FAILURE, UNSPECIFIED SNOMED Code(s): 68482514 Comment: - Increased Albumin, will give PRN - Creatinine again increasing. Will watch closely with paracentesis and diuresis - Check Urine Sodium to clarify prerenal disease vs HRS type II. (4) EtOH dependence Current Visit: Yes Status: Acute Code(s): F10.20 - ALCOHOL DEPENDENCE, UNCOMPLICATED SNOMED Code(s): 57894450 Comment: - No signs of withdrawal (5) Prostate cancer Current Visit: Yes Status: Acute Code(s): C61 - MALIGNANT NEOPLASM OF PROSTATE SNOMED Code(s): 086670768 Comment: - With bone mets. - Continue pain management. - Receives Lupron [id number] Calan, and Xtandi. (6) Thrombocytopenia Current Visit: Yes Status: Acute Code(s): D69.6 - THROMBOCYTOPENIA, UNSPECIFIED SNOMED Code(s): 822000851 Comment: - Secondary to portal HTN. No signs of bleeding at this time. - Continue to monitor. (7) DVT prophylaxis Current Visit: Yes Status: Acute Code(s): ZKU8403 - SNOMED Code(s): 504425606 Comment: - Hold SQ heparin as plt<50. - SCDs. (8) Full code status Current Visit: Yes Status: Acute Code(s): Z78.9 - OTHER SPECIFIED HEALTH STATUS SNOMED Code(s): 051506563 Status and Disposition: Inpatient.
[2018-04-02 21:21] LABS: ABS Neutrophils 16.7 10^3/ul (1.5-7.7)
[2018-04-02] MEDS ORDERED: Morphine VIAL* 4 MG/ML VIAL (1 ml vial) IV ONE (22:57)
[2018-04-02] MEDS ORDERED: Morphine VIAL* 4 MG/ML VIAL (1 ml vial) ONE (23:05)
[2018-04-03] MEDS: Albumin Human 25%* 25 GM/100 ML BTL IV SCH (00:33)
[2018-04-03] MEDS: fentaNYL PATCHs 100 MCG/HR TRANSDERM SCH (00:36)
[2018-04-03] MEDS: HYDROmorphone INJ1* 1 MG/ML SYRINGE IV PRN ×7 (00:48→22:35)
[2018-04-03] MEDS ORDERED: HYDROmorphone INJ1* 1 MG/ML SYRINGE ONE (00:49)
[2018-04-03] MEDS ORDERED: LORazepam INJ* 2 MG/ML 1 ML VIAL IV PUSH ONE (02:52)
[2018-04-03] MEDS ORDERED: LORazepam INJ* 2 MG/ML 1 ML VIAL ONE (02:55)
[2018-04-03] MEDS: Octreotide Acetate* 500 MCG in NS 0.9% 100 ML* 100 ML IVPB SCH (05:06)
[2018-04-03] MEDS ORDERED: HYDROmorphone INJ1* 1 MG/ML SYRINGE IV PRN (07:16)
[2018-04-03] MEDS: Gabapentin CAP(*) 100 MG PO SCH ×4 (09:07→23:16)
[2018-04-03] MEDS: fentaNYL Patch Check Q Shift 1 NOTE FOLLOW UP SCH ×2 (14:41→19:39)
--- NOTE | 2018-04-03 14:48 | PN ---
Subjective Date of Service: 04/03/18 Interval History: Patient is barely coherent today. Patient complains of uncontrolled pain but is unable to elaborate except that it is in his abdomen. Discussed with Family and they opted for full comfort care and life sustaining treatment was discontinued. Family History: Unchanged from Admission Social History: Unchanged from Admission Past Medical History: Unchanged from Admission Objective Active Medications: Fentanyl (Duragesic Patch 100 Mcg/Hr *) 200 mcg TRANSDERM Q72H [facility] Last Admin: 04/03/18 00:36 Dose: 200 mcg Gabapentin (Neurontin Cap(*)) 100 mg PO QID [facility] Last Admin: 04/02/18 21:20 Dose: Not Given Heparin Sodium (Porcine) (Heparin Flush Picc/Ml/Cvc(*)) 1 ml FLUSH 0600,1800 [facility]; Protocol Last Admin: 04/03/18 07:45 Dose: Not Given Hydromorphone HCl (Dilaudid Inj1s*) 1 mg IV Q1H PRN PRN Reason: PAIN MODERATE TO SEVERE Last Admin: 04/03/18 14:38 Dose: 1 mg Lorazepam (Ativan Inj*) 1 mg IV PUSH Q2H PRN PRN Reason: ANXIETY Ondansetron HCl (Zofran Inj*) 4 mg IV Q6H PRN PRN Reason: NAUSEA/VOMITING Pharmacy Profile Note (Fentanyl Patch Check Q Shift) 1 note FOLLOW UP 0700, 1900 [facility] Last Admin: 04/03/18 14:41 Dose: 1 note Vital Signs - 8 hr 04/03/18 04/03/18 04/03/18 07:58 08:42 10:46 Temperature 97 F Respiratory 22 20 Rate 04/03/18 14:38 Temperature Respiratory 18 Rate Oxygen Devices in Use Now: Nasal Cannula Appearance: Patient is a 62yo male who appears older than stated age and is sitting in the bed with agonal breathing. Eyes: No Scleral Icterus, PERRLA Ears/Nose/Mouth/Throat: NL Teeth, Lips, Gums, Clear Oropharnyx, Mucous Membranes Moist Neck: NL Appearance and Movements; NL JVP, Trachea Midline Respiratory: Symmetrical Chest Expansion and Respiratory Effort, - - Rhonchi throughout. Cardiovascular: NL Sounds; No Murmurs; No JVD, RRR, No Edema Abdominal: - - Worsening ascites, tender. Lymphatic: No Cervical Adenopathy Extremities: No Edema, No Clubbing, Cyanosis Skin: No Rash or Ulcers, No Nodules or Sclerosis Neurological: Alert and Oriented x 3, NL Sensation, NL Muscle Strength and Tone , - - CN II-XII intact. Result Diagrams: 04/02/18 05:00 04/02/18 09:02 Microbiology and Other Data: Microbiology 03/27/18 23:00 Gram Stain - Final Paracentesis Fluid Body Fluid Culture - Preliminary No Growth Day 1 03/27/18 22:13 Blood Culture - Preliminary Blood Venous No Growth Day 1 Assess/Plan/Problems-Billing Assessment: this is a 62 yr old aa male with hx of chronic etoh dependance and prostate cancer with bone metastases who presented with abd pain/girth. pt got tapped in the er and had two liter out. Patient was ruled out for SBP but has had hypotension and KHANG with need for repeat paracentesis. - Patient Problems (1) Liver cirrhosis, alcoholic Current Visit: Yes Status: Acute Code(s): K70.30 - ALCOHOLIC CIRRHOSIS OF LIVER WITHOUT ASCITES SNOMED Code(s): 579769317 Comment: - With component of ETOH hepatitis. Patient has h/o hepatitis C also. - Paracentesis was negative for SBP. - S/p paracentesis x2. - GI consult appreciated. - Cret Decreased dramatically, likely representing HRS, Disussed with Family MELD of 40 and poor prognosis and they opted to discontinue life sustaining treatments and institute comfort care only. (2) Hepatic encephalopathy Current Visit: Yes Status: Acute Code(s): K72.90 - HEPATIC FAILURE, UNSPECIFIED WITHOUT COMA SNOMED Code(s): 07132214 Comment: - Encephalopathic, Discontinued Lactulose and Rifaximin for comfort. (3) KHANG (acute kidney injury) Current Visit: Yes Status: Acute Code(s): N17.9 - ACUTE KIDNEY FAILURE, UNSPECIFIED SNOMED Code(s): 88266151 Comment: - Severely worsened due to likely HRS - Family opted against transfer for possible CRRT - Comfort care. (4) Prostate cancer Current Visit: Yes Status: Acute Code(s): C61 - MALIGNANT NEOPLASM OF PROSTATE SNOMED Code(s): 686074904 Comment: - With bone mets. - Continue pain management. - Disocontinued treatment. (5) Thrombocytopenia Current Visit: Yes Status: Acute Code(s): D69.6 - THROMBOCYTOPENIA, UNSPECIFIED SNOMED Code(s): 230071179 Comment: - Secondary to portal HTN. No signs of bleeding at this time. - Continue to monitor. (6) Full code status Current Visit: Yes Status: Acute Code(s): Z78.9 - OTHER SPECIFIED HEALTH STATUS SNOMED Code(s): 142574824 Status and Disposition: Inpatient for comfort care with life expectancy likely days.
[2018-04-03 15:10] VITALS: BP 88/40
[2018-04-03] MEDS: Mupirocin 2% OINT* TUBE TOPICAL SCH (15:10)
[2018-04-03] MEDS: Polyethyl Glycol/Propylene Gly OPHTH.SOLN BOTH EYES SCH (15:11)
[2018-04-03] MEDS: ENZALUTAMIDE 40 MG PO SCH (15:11)
[2018-04-03] MEDS: CMCS:Midodrine (NF) 5 MG TAB PO SCH (15:19)
[2018-04-04] MEDS: HYDROmorphone INJ1* 1 MG/ML SYRINGE IV PRN ×6 (00:35→09:53)
[2018-04-04] MEDS: LORazepam INJ* 2 MG/ML 1 ML VIAL IV PUSH PRN ×3 (01:54→09:53)
[2018-04-04] MEDS: fentaNYL Patch Check Q Shift 1 NOTE FOLLOW UP SCH ×2 (07:21→15:46)
[2018-04-04] MEDS: Gabapentin CAP(*) 100 MG PO SCH ×2 (07:30→12:51)
[2018-04-04] MEDS ORDERED: Naloxone* 0.4 MG/ML 1 ML VIAL IV PUSH PRN (09:51)
[2018-04-04] MEDS ORDERED: HYDROmorphone PCA* 20 MG/20 ML PCA.SYRING PCA SCH (10:00)
--- NOTE | 2018-04-06 10:06 | DS ---
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 SECONDARY DISCHARGE DIAGNOSES: 1. Prostate cancer, metastatic. 2. Chronic alcohol abuse. 3. History of heroin abuse. HOSPITAL COURSE: The patient was admitted to the hospital on 03/28/18 with altered mental status, in creased abdominal girth with increased falling. The patient came into the emergency department and h ad paracentesis which was negative for SBP. The patient was started on ammonia lowering therapy to g ood effect. The patient's diuretics were held. While he was in the hospital, he had 2 subsequent pa racenteses for symptomatic ascites. The patient had an KHANG with creatinine up to 2.09, which improve d with albumin infusions. The patient had no signs of infection; however, his mental status continue d to worsen and his MELD score kept on increasing with his INR increasing to 3.06 and his bilirubin i ncreasing to a high, last checked, of 19.0. On 04/02/18, the patient's creatinine increased signific antly from 1.65 to 2.87. The patient had a urinalysis at this point that was concerning for urinary tract infection. The patient was started on antibiotics. The patient was started on albumin, midodr ine with rapidly escalating dose and octreotide. This failed to improve the patient's creatinine wit h it continuing to rise to 3.14 on subsequent check. The patient was unable to make his needs known at this time and did not understand his prognosis. This was discussed with the patient's family. Th e patient's MELD score at this time was 40 and the family decision to pursue continuous renal replacement therapy at a different institution or engage in comfort care given the patient's prognosi s and incurable prostate cancer as well as poor quality of life, homelessness and continued medicatio n nonadherence and alcohol abuse. Given all these factors, the patient's family opted for comfort ca re. All treatments were discontinued on 04/03/18 and the patient at approximately 1:00 p.m. on 04/04/18 with his pain being controlled adequately in his last day by Dilaudid IV. Comfort was pr ovided to the family and assistance was provided with end-of-life arrangements. ZACH CESPEDES [id number]/[facility] #: [id number]
== END 2018-04-04 13:59 | disposition expired | DRG 280 ==
LOC: ED 20:27 → MED 03-28 00:01 → OBSVTOIN 03-28 09:54 → ICU 04-02 10:22 → MED 04-03 14:57
PROVIDERS: ADMIT Internal Medicine; ATTEND Internal Medicine
PROC: 0W9G3ZZ Drainage of Peritoneal Cavity, Percutaneous Approach (ICD-10-PCS; principal; 2018-03-27)
PROC: 0W9G3ZZ Drainage of Peritoneal Cavity, Percutaneous Approach (ICD-10-PCS; 2018-03-31)
DX: K70.31 Alcoholic cirrhosis of liver with ascites (principal); K76.7 Hepatorenal syndrome; N17.9 Acute kidney failure, unspecified; C79.51 Secondary malignant neoplasm of bone; E87.2 Acidosis; K51.00 Ulcerative (chronic) pancolitis without complications; R34 Anuria and oliguria; I95.9 Hypotension, unspecified; D69.6 Thrombocytopenia, unspecified; K72.90 Hepatic failure, unspecified without coma; K72.10 Chronic hepatic failure without coma; C61 Malignant neoplasm of prostate; F10.20 Alcohol dependence, uncomplicated; Y90.0 Blood alcohol level of less than 20 mg/100 ml; Z66 Do not resuscitate; R79.1 Abnormal coagulation profile; R27.8 Other lack of coordination; E87.6 Hypokalemia; F11.21 Opioid dependence, in remission; Z86.19 Personal history of other infectious and parasitic diseases; Z59.0 Homelessness; Z81.1 Family history of alcohol abuse and dependence; Z79.82 Long term (current) use of aspirin; Z79.899 Other long term (current) drug therapy
CPT/HCPCS: 36415; 71045; 72220; 74176; 80048; 80053; 80061; 80320; 81003; 81015; 82042; 82140; 82150; 82247; 82550; 82945; 83605; 83615; 83690; 83735; 84157; 84300; 84443; 84484; 85025; 85060; 85610; 85730; 86022; 86140; 87040; 87070; 87086; 87205; 87641; 89051; 93005; 99284; 99406; A9270-GY; G0480; G8978-GP-CK; G8979-GP-CI; J0696; J1170; J1644; J2060; J2270; J2354; J2405; J2543; J3411; J3480; J7060; P9047